=== PATIENT | female | born 1955 | race Caucasian/White ===

== ENCOUNTER → 2016-07-03 | Outpatient (CLI) | payer MEDICARE ==
[~2016-07-03] MED LIST: /ADVA50050; /ESCI20TA; /ESOM40CA; /TIOT18INH; ALBU17IN2; ALBU83IN; NICO14DI3; PRED10TA2; SYNT88TA; TRAZ50TA; TUMS500C; XANA0.25
--- NOTE | 2016-07-03 11:39 | REP ---
Clinical: Benign neoplasm. Preoperative assessment. Technique: PA and lateral. Comparison: 01/14/2016. Findings: Advanced COPD and emphysematous changes are appreciated including diffuse hyperinflation. Mediastinum and cardiac silhouette normal. No acute consolidation, effusion, or pneumothorax. A subtle density in the periphery of the left mid lung zone cannot be excluded and may warrant chest CT follow-up. Skeletal structures intact. Impression: 1. COPD and emphysematous changes. 2. Cannot exclude 12 mm density in the periphery of the left mid lung zone. Chest CT should be considered for further investigation. Signed by Nathaniel Gustafson MD 07/03/2016 11:30 A
[2016-07-03 12:29] LABS: COLLAGEN ADP 104 SECONDS (56-103)
[2016-07-03 12:41] LABS: ANION GAP 9 MEQ/L (8-16); BLOOD UREA NITROGEN 20 MG/DL (7-18); CALCIUM LEVEL 9.8 MG/DL (8.8-10.2); CARBON DIOXIDE LEVEL 30 MEQ/L (21-32); CHLORIDE LEVEL 103 MEQ/L (98-107); CREATININE FOR GFR 0.83 MG/DL (0.55-1.02); GLOMERULAR FILTRATION RATE > 60.0 (>45); GLUCOSE, FASTING 95 MG/DL (80-110); POTASSIUM SERUM 4.2 MEQ/L (3.5-5.1); SODIUM LEVEL 142 MEQ/L (136-145)
--- NOTE | 2016-07-04 07:53 | ECGEPIP ---
Stationary ECG Study [facility] Test Date: 2016-07-03 Pat Name: ANMOL ONEAL Department: Room: - Gender: F Apprentice Pattern Maker: : 1955 Requested By: Abhay Cm Order Number: [id number] Reading MD: Wilian Castillo Measurements Intervals [place] Rate: 56 P: 73 OH: 151 QRS: 6 QRSD: 101 T: 56 QT: 401 QTc: 389 Interpretive Statements SINUS BRADYCARDIA INCOMPLETE RIGHT BUNDLE BRANCH BLOCK No change from 11/07/14 Electronically Signed On 07-04-2016 7:53:12 EST by Wilian Castillo
== END | disposition home or self-care (01) ==
LOC: M LAB 10:47
PROVIDERS: ATTEND Ophthalmology
DX: D23.11 Other benign neoplasm of skin of right eyelid, including canthus (principal); J44.9 Chronic obstructive pulmonary disease, unspecified; R00.1 Bradycardia, unspecified; I45.10 Unspecified right bundle-branch block

== ENCOUNTER → 2016-07-27 | Day surgery (SDC) | payer MEDICARE ==
--- NOTE | 2016-07-26 00:34 | HPE ---
DATE OF ADMISSION: 07/27/2016 ROOM: Operating room. HISTORY AND CHIEF COMPLAINT: Mrs. Burdick is a 61-year-old lady who has had a 10-year history of a growth on the caruncle of the right eye. It has increased in size. Approximately 5 years ago there was some bleeding from the lesion. 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 PAST OCULAR HISTORY: See history of present illness, dry syndrome both eyes, age-related macular degeneration both eyes. Vitreous degeneration both eyes. PAST MEDICAL HISTORY/PREOPERATIVE MEDICAL EVALUATION AND ASSESSMENT: Please see the report by Dr. Stevie Zapata. Chronic obstructive pulmonary disease (COPD), depression, anxiety, asthma, hypothyroidism. Chest x-ray preoperatively shows a 12 mm density in the periphery of the left mid lung zone. Ge Osborne, nurse practitioner has ordered a CT scan of the chest to investigate this further. MEDICATIONS: Please refer to the report by Dr. Stevie Zapata and Ge Osborne. Maxalt, albuterol nebulizer, azelastine nasal spray, gabapentin, ibuprofen, cyclobenzaprine, omeprazole, dicyclomine, Advair Diskus, levothyroxine, vitamin D3, Chantix, Xanax, Lexapro, trazodone. ALLERGIES: No known drug allergies. FAMILY HISTORY: Noncontributory with respect to eye disease. SOCIAL HISTORY: Current smoker. EXAMINATION: The vision with current correction: Right eye 20/20. Left eye: 20/25. Intraocular pressure by Goldmann tonometry: Right eye: 9 mmHg. Left eye: 10 mmHg. Pupils: Both eyes: Round, regular and reactive to light. Extraocular movements: Both eyes: Full. External examination: Right eye: Papilloma seen on the caruncle of the right eye measuring 5 mm in length x 3.2 mm in width. Associated cyst, associated 1/2 + swelling 1/2+ redness and semi-pigmented. No lymphadenopathy present. Decreased tear duran. Left eye: Decreased tear duran. Both eyes: Dermatochalasis of upper and lower eyelids. Slit lamp examination: Corneas: Both eyes: 1+ superficial punctate keratitis. Anterior chamber: Both eyes: Normal. Lens: Both eyes: Clear. Fundal exam: Disc: Both eyes Normal Macula: Right eye: Retinal pigment epithelial atrophy. Left eye: Normal. Vitreous: Both eyes: Floaters. IMPRESSION: 1. 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 2. Dry syndrome both eyes. 3. Age-related macular degeneration, right eye, mild. PLAN: I discussed the findings with Le and explained to her the growth on the caruncle of the right eye has increased in size by history. It is semi-pigmented. I recommended an excisional biopsy of the lesion in the operating room under local anesthetic with sedation. I discussed with her the procedure, benefits, expected outcomes, risks and alternatives to surgery. I mentioned that the risk of surgery includes, but is not limited to surgery is not guaranteed, the purpose of the excisional biopsy is to determine what is the lesion, bleeding, infection, inflammation, scarring , injury to the globe, lacrimal system or the eyelids impairing function. Mrs. Burdick elected to have the said surgery performed. I obtained an informed consent. I advised her to stop any aspirin-type products and nonsteroidal anti-inflammatories [address] Stevie Zapata and Ge Osborne NP will determine the preoperative and postopereative medications. RJ
[~2016-07-27] VITALS: Ht 154.9 cm; Wt 42.2 kg
[~2016-07-27] MED LIST changes: +ACETAMINOPHEN TAB 650MG DOSE (2X325MG) PO PRN; +BUPIVACAINE 0.75% 10 ML VIAL As Ordered ONE; +CIPROFLOXACIN OPHTH 0.3% OINTMENT As Ordered ONE; +HYALURONIDASE 200 UNITS/ML VIAL (J3470) As Ordered ONE; +LIDOCAINE 2% INJ 100 MG/5 ML SDV (FOR ANES.) As Ordered ONE; +LIDOCAINE 2% W/EPIN INJ 20ML **PRES FREE As Ordered ONE; +LIDOCAINE W/EPINEPHRINE 1% 20ML VIAL As Ordered ONE; +LR 1,000 ML IV SCH; +MIDAZOLAM INJ 2 MG/2 ML VIAL (J2250) As Ordered ONE; +ONDANSETRON 4MG/2ML VIAL (J2405) IV PRN; +POVIDONE-IODINE 5% OPHTH PREP SOL 30ML As Ordered ONE; +PROPOFOL 200 MG/20 ML VIAL As Ordered ONE; +SODIUM BICARBONATE 8.4% INJ 50MEQ 50 ML VIAL As Ordered ONE; +TETRACAINE 0.5% OPHTH SOLN 4ML As Ordered ONE; +TOBRADEX OPHTH OINT 3.5 GM As Ordered ONE; +ceFAZolin SOD 1 GM in D5W MINI-BAG PLUS 50 ML IV ONE; +dexameTHASONE 4 MG/ML 1ML VIAL (J1100) IV ONE; +fentaNYL 100 MCG/2 ML INJECTION (J3010) As Ordered ONE
--- NOTE | 2016-07-27 09:01 | RO ---
DATE OF PROCEDURE: 07/27/2016 PREOPERATIVE DIAGNOSIS: 1. Papilloma on caruncle of right eye, 5 x 3.2 mm in size. POSTOPERATIVE DIAGNOSIS: 1. Papilloma on caruncle of right eye, 5 x 3.2 mm in size, pigmented. OPERATIVE PROCEDURE: Excisional biopsy of papilloma on caruncle of right eye. SURGEON: Abhay Cm MD SENIOR PUBLICATIONS SPECIALIST: ANESTHESIA: Local and monitored sedation. OPERATIVE PROCEDURE DETAILS: The patient was brought into the operating room and positioned appropriately. After adequate sedation, topical anesthetic consisting of tetracaine 0.5% drops was instilled into the right eye and after a period of 3 minutes Xylocaine 2% with epinephrine 1:200,000, 0.25 5 mL was injected into the lesion in the right caruncle. The full face was prepped with Betadine and draped in the usual sterile manner. A wire lid speculum was inserted into the right eye. The lesion was examined and noted to be pigmented. The blunt Davion's scissors and the fine-tooth Janelle scissors were used to excise the lesion completely from a clinical perspective. Bipolar cautery was applied to any fine bleeders. There were no complications during the surgery. A combination of TobraDex ophthalmic ointment mixed with Ciloxan ophthalmic ointment was instilled into the right eye. The specimens were sent to pathology. The patient left for the recovery room in good condition. [facility] SHORE[facility]line
[2016-07-27 09:05] VITALS: BP 118/72
== END | disposition home or self-care (01) ==
LOC: M SDC 06:04
PROVIDERS: ATTEND Ophthalmology
DX: D23.11 Other benign neoplasm of skin of right eyelid, including canthus (principal); H04.123 Dry eye syndrome of bilateral lacrimal glands; H35.30 Unspecified macular degeneration; H43.813 Vitreous degeneration, bilateral; R91.1 Solitary pulmonary nodule; J44.9 Chronic obstructive pulmonary disease, unspecified; J45.909 Unspecified asthma, uncomplicated; E03.9 Hypothyroidism, unspecified; F32.9 Major depressive disorder, single episode, unspecified; F41.9 Anxiety disorder, unspecified; F34.1 Dysthymic disorder; E55.9 Vitamin D deficiency, unspecified; J84.10 Pulmonary fibrosis, unspecified; E78.4 Other hyperlipidemia; M81.0 Age-related osteoporosis without current pathological fracture; F17.210 Nicotine dependence, cigarettes, uncomplicated; Z79.899 Other long term (current) drug therapy; Z79.1 Long term (current) use of non-steroidal anti-inflammatories (NSAID); Z79.51 Long term (current) use of inhaled steroids
CPT/HCPCS: 11440; 88305; J0690; J1100; J2250; J3010; J3470

== ENCOUNTER → 2016-07-29 | Outpatient (CLI) | payer MEDICARE ==
[~2016-07-29] MED LIST changes: -ACETAMINOPHEN TAB 650MG DOSE (2X325MG) PO PRN; -BUPIVACAINE 0.75% 10 ML VIAL As Ordered ONE; -CIPROFLOXACIN OPHTH 0.3% OINTMENT As Ordered ONE; -HYALURONIDASE 200 UNITS/ML VIAL (J3470) As Ordered ONE; -LIDOCAINE 2% INJ 100 MG/5 ML SDV (FOR ANES.) As Ordered ONE; -LIDOCAINE 2% W/EPIN INJ 20ML **PRES FREE As Ordered ONE; -LIDOCAINE W/EPINEPHRINE 1% 20ML VIAL As Ordered ONE; -LR 1,000 ML IV SCH; -MIDAZOLAM INJ 2 MG/2 ML VIAL (J2250) As Ordered ONE; -ONDANSETRON 4MG/2ML VIAL (J2405) IV PRN; -POVIDONE-IODINE 5% OPHTH PREP SOL 30ML As Ordered ONE; -PROPOFOL 200 MG/20 ML VIAL As Ordered ONE; -SODIUM BICARBONATE 8.4% INJ 50MEQ 50 ML VIAL As Ordered ONE; -TETRACAINE 0.5% OPHTH SOLN 4ML As Ordered ONE; -TOBRADEX OPHTH OINT 3.5 GM As Ordered ONE; -ceFAZolin SOD 1 GM in D5W MINI-BAG PLUS 50 ML IV ONE; -dexameTHASONE 4 MG/ML 1ML VIAL (J1100) IV ONE; -fentaNYL 100 MCG/2 ML INJECTION (J3010) As Ordered ONE
--- NOTE | 2016-07-30 09:05 | REP ---
PET/CT: History: Solitary pulmonary nodule. Comparisons: Chest CT study from July 22, 2016 and chest x-ray from July 03, 2016 showed a 1.5 cm spiculated nodule in the left lower lobe of the lung. TECHNIQUE: 84 minutes following the intravenous injection of a 8.3 mCi dose of F-18 FDG, three-dimensional PET scintigraphy is acquired from the skull base to the proximal thighs. Triplanar noncontrast CT scanning is acquired through the same anatomic range for attenuation correction, and image registration with scan parameters optimized to minimize radiation exposure to the patient. PET scintigraphy and CT datasets were fused and displayed on a workstation with multiplanar and projection display capability. PET/CT Findings: The left lower lobe lung nodule is hypermetabolic. Maximum standard uptake value in this nodule is 6.4. There is no hypermetabolic uptake in the left hilus for a and mediastinal now nodes. No adrenal hypermetabolic uptake is seen. There is a small linear area of hypermetabolic uptake in the distal esophagus just above the GE junction. Maximum standard uptake value here is a five 0.4. There are some linear normal physiologic uptake in the remainder of the esophagus. There is mild physiologic bowel uptake in the abdomen but less avid than in the distal esophagus. I cannot exclude a distal esophageal neoplastic lesion. Consider esophagram or upper endoscopy. In the abdomen and pelvis there is no abnormal hypermetabolic uptake. The head and neck soft tissues are unremarkable. No other abnormality. Impression: 1. The known left lower lobe mass is hypermetabolic. No hilar or mediastinal cari hypermetabolic uptake. No adrenal uptake seen. 2. there is a short-segment somewhat linear area of hypermetabolic uptake in the distal esophagus. This shows more avid uptake than normal physiologic background gastrointestinal uptake. Question distal esophageal lesion. Consider esophagram or endoscopy. Signed by Darron Valdivia MD 07/30/2016 08:57 A
== END ==
LOC: M RAD 11:45
PROVIDERS: ATTEND Internal Medicine Pulmonary Disease
DX: R91.1 Solitary pulmonary nodule (principal); R91.8 Other nonspecific abnormal finding of lung field
CPT/HCPCS: 78815; A9552

== ENCOUNTER → 2016-08-17 | Day surgery (SDC) | payer MEDICARE ==
[~2016-08-17] VITALS: Ht 154.9 cm; Wt 42.6 kg
[~2016-08-17] MED LIST changes: +ADV250INH INH; +ALBU17IN INH; +EPINEPHrine 1MG/10ML SYRINGE 1.5IN As Ordered ONE; +GLYCOPYRROLATE INJ 0.2 MG/ML 2 ML VIAL As Ordered ONE; +LEVO88TA3 PO; +LEXA1TAB2 PO; +LIDOCAINE 1% SDV INJ 30 ML VIAL As Ordered ONE; +LIDOCAINE 2% INJ 100 MG/5 ML SDV (FOR ANES.) As Ordered ONE; +LIDOCAINE VISCOUS 2% SOLN 15ML UDC As Ordered ONE; +LR 1,000 ML IV SCH; +MIDAZOLAM INJ 2 MG/2 ML VIAL (J2250) As Ordered ONE; +NEOSTIGMINE 1MG/ML 5 ML SYRINGE (J2710) As Ordered ONE; +ONDANSETRON 4MG/2ML VIAL (J2405) As Ordered ONE; +ONDANSETRON 4MG/2ML VIAL (J2405) IV PRN; +PHENYLephrine HCL 500 MCG/5 ML (100MCG/ML) SYRINGE (J2370) As Ordered ONE; +PROPOFOL 200 MG/20 ML VIAL As Ordered ONE; +ROCURONIUM BROMIDE 50 MG/5 ML VIAL As Ordered ONE; +THROMBIN SOLN 5,000 UNITS VIAL As Ordered ONE; +TRAZ100T4 PO; +VITA500046 PO; +XANA0.25 PO; +fentaNYL 100 MCG/2 ML INJECTION (J3010) As Ordered ONE; +fentaNYL 100 MCG/2 ML INJECTION (J3010) IV PRN
--- NOTE | 2016-08-17 08:46 | RO ---
DATE OF PROCEDURE: 08/17/2016 PREPROCEDURE DIAGNOSIS: Left lower lobe solitary pulmonary nodule. POSTPROCEDURE DIAGNOSIS: Left lower lobe solitary pulmonary nodule. PROCEDURE: ENB with transbronchial biopsies, cutting needle, brushing, and bronchoalveolar lavage (BAL). A fiducial marker was placed. SURGEON: Moi Pinon MD RESIDENTIAL TREATMENT STAFF: ANESTHESIA: General. DESCRIPTION OF PROCEDURE: The procedure was explained and consent was obtained. Ms. Burdick was intubated and sedation and pain management was handled by anesthesia. [place] procedure was followed. Following this, the bronchoscope was introduced through the endotracheal tube into the trachea. Both lungs were examined. There was a small amount of secretions, which were evacuated. There was pitting and some evidence of bronchiectasis. Automatic registration was then done. Following this, the Smartjog software was used to locate the lesion. Position was confirmed by fluoroscopy. Following this, needle biopsy was done, but it appeared that the needle may have been deflected from the lesion. Therefore, we changed to a brushing followed by five transbronchial biopsies, followed by a cutting needle. A fiducial marker was then placed. BAL was then done. She tolerated the procedure well. Postoperative x-ray pending. FINDINGS: 1. Minimal secretions. 2. Pitting and evidence of bronchiectasis in the airway. SPECIMENS: 1. Left lower lobe lesion transbronchial biopsies sent to pathology. 2. Left lower lobe lesion cutting needle sent to cytology. 3. Left lower lobe lesion brushing sent to cytology. 4. Left lower lobe lesion BAL sent to cytology. [facility]
--- NOTE | 2016-08-17 09:30 | REP ---
PORTABLE CHEST: AP portable view of the chest is performed and compared to a prior study of 07/03/2016. Ill-defined parenchymal opacity in the left lung inferiorly is noted with a metallic clip at that location. There is no pneumothorax. There is biapical pleural thickening. There is diffuse interstitial fibrosis. Cardiomediastinal silhouette is unchanged. IMPRESSION: No pneumothorax. Ill-defined focal opacity left lung base with metallic clip at that location. Signed by Melo Sandoval MD 08/17/2016 03:53 P
[2016-08-17 10:10] VITALS: BP 106/67
== END | disposition home or self-care (01) ==
LOC: M SDC 05:48 → EDSTATUS 07:30
PROVIDERS: ATTEND Internal Medicine Pulmonary Disease
DX: C34.32 Malignant neoplasm of lower lobe, left bronchus or lung (principal); J44.9 Chronic obstructive pulmonary disease, unspecified; J45.909 Unspecified asthma, uncomplicated; E55.9 Vitamin D deficiency, unspecified; G43.909 Migraine, unspecified, not intractable, without status migrainosus; M81.0 Age-related osteoporosis without current pathological fracture; F41.9 Anxiety disorder, unspecified; F32.9 Major depressive disorder, single episode, unspecified; R06.00 Dyspnea, unspecified; R05 Cough; E03.9 Hypothyroidism, unspecified; F17.218 Nicotine dependence, cigarettes, with other nicotine-induced disorders; Z79.899 Other long term (current) drug therapy; Z79.51 Long term (current) use of inhaled steroids; Z80.1 Family history of malignant neoplasm of trachea, bronchus and lung; Z88.8 Allergy status to other drugs, medicaments and biological substances; Z88.5 Allergy status to narcotic agent
CPT/HCPCS: 31623; 31624; 31626; 31627; 31629; 71010; 76000; 88104; 88108; 88172; 88173; 88305; 88313; 88341; 88342; J2250; J2370; J2405; J2710; J3010

== ENCOUNTER → 2016-08-26 | Outpatient (CLI) | payer MEDICARE ==
[~2016-08-26] MED LIST changes: -EPINEPHrine 1MG/10ML SYRINGE 1.5IN As Ordered ONE; -GLYCOPYRROLATE INJ 0.2 MG/ML 2 ML VIAL As Ordered ONE; -LIDOCAINE 1% SDV INJ 30 ML VIAL As Ordered ONE; -LIDOCAINE 2% INJ 100 MG/5 ML SDV (FOR ANES.) As Ordered ONE; -LIDOCAINE VISCOUS 2% SOLN 15ML UDC As Ordered ONE; -LR 1,000 ML IV SCH; -MIDAZOLAM INJ 2 MG/2 ML VIAL (J2250) As Ordered ONE; -NEOSTIGMINE 1MG/ML 5 ML SYRINGE (J2710) As Ordered ONE; +NS 1,000 ML IV SCH; -ONDANSETRON 4MG/2ML VIAL (J2405) As Ordered ONE; -ONDANSETRON 4MG/2ML VIAL (J2405) IV PRN; -PHENYLephrine HCL 500 MCG/5 ML (100MCG/ML) SYRINGE (J2370) As Ordered ONE; -PROPOFOL 200 MG/20 ML VIAL As Ordered ONE; -ROCURONIUM BROMIDE 50 MG/5 ML VIAL As Ordered ONE; -THROMBIN SOLN 5,000 UNITS VIAL As Ordered ONE; -fentaNYL 100 MCG/2 ML INJECTION (J3010) As Ordered ONE; -fentaNYL 100 MCG/2 ML INJECTION (J3010) IV PRN
--- NOTE | 2016-08-26 14:31 | ROOR ---
Patient Name: Le Burdick Procedure Date: 08/26/2016 2:16 PM Date of : 1955 Age: 61 Room: [facility] Gender: Female Note Status: Finalized Procedure: Upper GI endoscopy + Biopsies Indications: Abnormal PET scan of the GI tract Providers: Calderon Armas MD Referring MD: Ge Osborne NP, Rhianna Pinon MD Requesting Provider: Medicines: Monitored Anesthesia Care Complications: No immediate complications. Procedure: Pre-Anesthesia Assessment: - The heart rate, respiratory rate, oxygen saturations, blood pressure, adequacy of pulmonary ventilation, and response to care were monitored throughout the procedure. The Endoscope was introduced through the mouth, and advanced to the second part of duodenum. The upper GI endoscopy was accomplished without difficulty. The patient tolerated the procedure well. Findings: The Z-line was irregular and was found 40 cm from the incisors. Multiple biopsies were obtained with cold forceps for evaluation to rule out Cisneros's Esophagus randomly at the gastroesophageal junction. A small hiatal hernia was present. No other significant abnormalities were identified in a careful examination of the stomach. The exam of the duodenum was otherwise normal. Impression: - Z-line irregular, 40 cm from the incisors. - Small hiatal hernia. - Multiple biopsies were obtained at the gastroesophageal junction. - The examination was otherwise normal. Recommendation: - Patient has a contact number available for emergencies. The signs and symptoms of potential delayed complications were discussed with the patient. Return to normal activities tomorrow. Written discharge instructions were provided to the patient. - High fiber diet. - Discharge patient to home. - Follow an antireflux regimen. - Continue present medications. - Await pathology results. - Telephone GI clinic for pathology results in 1 week. - Return to referring physician. - The findings and recommendations were discussed with the patient's family. Calderon Armas MD Calderon Armas MD 08/26/2016 2:30:56 PM This report has been signed electronically. Number of Addenda: 0 Note Initiated On: 08/26/2016 2:16 PM Estimated Blood Loss: Estimated blood loss: none.
[2016-08-26 14:56] VITALS: BP 133/77
== END ==
LOC: M OPP 13:03
PROVIDERS: ATTEND Internal Medicine Gastroenterology
DX: R93.3 Abnormal findings on diagnostic imaging of other parts of digestive tract (principal); K22.8 Other specified diseases of esophagus; K44.9 Diaphragmatic hernia without obstruction or gangrene; Z85.118 Personal history of other malignant neoplasm of bronchus and lung; Z86.010 Personal history of colon polyps; E07.9 Disorder of thyroid, unspecified; J45.909 Unspecified asthma, uncomplicated; J44.9 Chronic obstructive pulmonary disease, unspecified; F17.200 Nicotine dependence, unspecified, uncomplicated; Z79.899 Other long term (current) drug therapy; Z88.5 Allergy status to narcotic agent

== ENCOUNTER → 2016-09-11 | Outpatient (CLI) | payer MEDICARE ==
[~2016-09-11] MED LIST changes: -NS 1,000 ML IV SCH
--- NOTE | 2016-09-11 12:52 | REP ---
CHEST, TWO VIEWS: HISTORY: Lung carcinoma. COMPARISON: 08/17/2016 The lungs are hyperinflated. An increase in interstitial markings is present in the lungs. An ill-defined parenchymal density is present in the left lower lobe. A metal clip is present overlying the parenchymal density. The heart is normal in size. The pulmonary vasculature is normal in appearance. The bony structure is intact. IMPRESSION: 1. COPD. 2. There is an ill-defined parenchymal density in the left lower lobe, unchanged compared to the previous study. Signed by Vaughn Green MD 09/11/2016 01:09 P
--- NOTE | 2016-09-11 15:15 | REP ---
DIFFERENTIAL LUNG VENTILATION AND PERFUSION SCAN: Following the intravenous administration of 1.0 mCi of technetium 99m tagged MAA and the inhalation of 2.0 mCi of technetium 99m DTPA aerosol, images of the lungs are obtained in the anterior and posterior projections. Small bilateral matching ventilation and perfusion defects are seen. Differential counts are obtained in the upper, middle and lower thirds of each lung. Mean perfusion of the left lung is 57.6% and of the right lung is 42.4%. Mean ventilation of the left lung is 52.3% and right lung 47.7%. Signed by Melo Sandoval MD 09/11/2016 04:44 P
== END ==
LOC: M RAD 12:08
PROVIDERS: ATTEND Thoracic Surgery (Cardiothoracic Vascular Surgery)
DX: C34.32 Malignant neoplasm of lower lobe, left bronchus or lung (principal); J44.9 Chronic obstructive pulmonary disease, unspecified
CPT/HCPCS: 71020; 78598; A9540; A9567

== ENCOUNTER → 2016-09-14 | Outpatient (CLI) | payer MEDICARE ==
--- NOTE | 2016-09-16 20:26 | CPSTRESS ---
DATE OF PROCEDURE: 09/14/2016 INTERPRETATION: This was a symptom-limited exercise test with a VO2 max of 23.7 mL/kg (83% predicted). There was no cardiovascular or ventilatory limitation to exercise (VE is 70% of predicted max and heart rate is 72% of predicted max) consistent with a submaximal effort. The O2 pulse is 7 mL/beat (78% predicted). There is no flow limitation on exercise tidal loops. Ventilatory equivalents are mildly elevated with no oxygen desaturation during or after exercise. Anaerobic threshold is 19.7 mL/kg. Normal lung auscultation following exercise. No EKG abnormalities. IMPRESSION: A VO2 max of 83% predicted with a submaximal effort suggests a normal VO2 max. Elevated ventilatory equivalent suggests a gas exchange abnormality or acute hyperventilation. Need clinical correlation. MTDD
== END ==
LOC: M CARPUL 10:19
PROVIDERS: ATTEND Thoracic Surgery (Cardiothoracic Vascular Surgery)
DX: C34.32 Malignant neoplasm of lower lobe, left bronchus or lung (principal)

== ENCOUNTER → 2016-10-09 | Outpatient (CLI) | payer MEDICARE ==
[~2016-10-09] MED LIST changes: +SPIR12.9 INH
[2016-10-09 11:28] LABS: ABG BASE EXCESS 1.2 (-2.0-2.0); ABG DEVICE ROOM AIR; ABG HCO3 23.1 MEQ/L (22.0-26.0); ABG PARTIAL PRESSURE CO2 29.9 mmHg (35.0-45.0); ABG STANDARD HCO3 25.5 MEQ/L (22.0-26.0); ABG pH (ARTERIAL) 7.505 UNITS (7.350-7.450)
[2016-10-09 11:56] LABS: MEAN CORPUSCULAR HEMOGLOBIN 34.9 pg (27.0-33.0); MEAN CORPUSCULAR HGB CONC 33.8 g/dl (32.0-36.5); MEAN CORPUSCULAR VOLUME 103.2 fl (80.0-96.0); RED CELL DISTRIBUTION WIDTH 12.1 % (11.5-14.5); WHITE BLOOD COUNT 8.9 K/mm3 (4.0-10.0)
[2016-10-09 11:58] LABS: INR 0.91
[2016-10-09 12:14] LABS: ANION GAP 9 MEQ/L (8-16); BLOOD UREA NITROGEN 12 MG/DL (7-18); CALCIUM LEVEL 9.5 MG/DL (8.8-10.2); CARBON DIOXIDE LEVEL 29 MEQ/L (21-32); CHLORIDE LEVEL 102 MEQ/L (98-107); CREATININE FOR GFR 0.83 MG/DL (0.55-1.02); GLOMERULAR FILTRATION RATE > 60.0 (>45); GLUCOSE, FASTING 96 MG/DL (80-110); POTASSIUM SERUM 4.1 MEQ/L (3.5-5.1); SODIUM LEVEL 140 MEQ/L (136-145)
--- NOTE | 2016-10-09 12:24 | REP ---
Clinical: Lung cancer. Technique: PA and lateral. Comparison: 09/11/2016. Findings: Just peripheral to the surgical clip in the left lower lung zone is an ovoid soft tissue density measuring approximately 17 mm. Mediastinum and cardiac silhouette are normal. Remainder of lung cabello are well-aerated, clear and stable. No effusion. No pneumothorax. Chronic biapical scarring noted. Skeletal structures intact. Impression: Ovoid density peripheral to the surgical clip in the left lower lobe. Signed by Nathaniel Gustafson MD 10/09/2016 12:16 P
--- NOTE | 2016-10-09 19:57 | ECGEPIP ---
Stationary ECG Study [facility] Test Date: 2016-10-09 Pat Name: ANMOL ONEAL Department: Room: - Gender: F Fashion Buyer: KENRICK : 1955 Requested By: García Collazo Order Number: [id number] Reading MD: Abhay Clement Measurements Intervals [place] Rate: 71 P: 75 OH: 142 QRS: -10 QRSD: 105 T: 55 QT: 387 QTc: 422 Interpretive Statements SINUS RHYTHM INCOMPLETE RIGHT BUNDLE BRANCH BLOCK Electronically Signed On 10-09-2016 19:57:22 EDT by Abhay Clement
== END ==
LOC: M ADMPAT 10:02
PROVIDERS: ATTEND Thoracic Surgery (Cardiothoracic Vascular Surgery)
DX: Z01.818 Encounter for other preprocedural examination (principal); C34.90 Malignant neoplasm of unspecified part of unspecified bronchus or lung; I45.10 Unspecified right bundle-branch block; Z79.899 Other long term (current) drug therapy

== ENCOUNTER 2016-10-21 05:53 | Inpatient (IN) | payer MEDICARE ==
[2016-10-09 10:26] VITALS: BP 115/77
[~2016-10-21] VITALS: Ht 154.9 cm; Wt 45.7 kg
[2016-10-21] MEDS ORDERED: LR 1,000 ML IV SCH ×2 (06:00→12:30)
[2016-10-21] MEDS ORDERED: ceFAZolin 1GM INJ (J0690) As Ordered ONE (06:48)
[2016-10-21] MEDS ORDERED: ceFAZolin SOD 1 GM in D5W MINI-BAG PLUS 50 ML IV ONE (07:00)
[2016-10-21] MEDS ORDERED: MUPIROCIN 2% OINT 22 GM TUBE TOP ONE (07:15)
[2016-10-21] MEDS ORDERED: fentaNYL 100 MCG/2 ML INJECTION (J3010) As Ordered ONE (07:19)
[2016-10-21] MEDS ORDERED: MIDAZOLAM INJ 2 MG/2 ML VIAL (J2250) As Ordered ONE ×2 (07:19→09:29)
[2016-10-21] MEDS: fentaNYL 100 MCG/2 ML INJECTION (J3010) IV SCH ×2 (07:28→08:05)
[2016-10-21] MEDS: MIDAZOLAM INJ 2 MG/2 ML VIAL (J2250) IV SCH ×2 (07:28→07:31)
[2016-10-21] MEDS ORDERED: BUPIVACAINE HCL 0.5% 10 ML VIAL As Ordered ONE (07:33)
[2016-10-21] MEDS ORDERED: BUPIVACAINE LIPOSOME/PF 1.3% 20 ML VIAL (13.3MG/ML)(EXPAREL) As Ordered ONE ×2 (07:34→10:50)
[2016-10-21] MEDS ORDERED: fentaNYL 100 MCG/2 ML INJECTION (J3010) IV SCH (08:30)
[2016-10-21] MEDS ORDERED: MIDAZOLAM INJ 2 MG/2 ML VIAL (J2250) IV SCH (08:30)
[2016-10-21] MEDS ORDERED: fentaNYL 250 MCG/5 ML INJECTION (J3010) As Ordered ONE (09:29)
[2016-10-21] MEDS ORDERED: dexameTHASONE 4 MG/ML 1ML VIAL (J1100) As Ordered ONE (09:29)
[2016-10-21] MEDS ORDERED: PHENYLephrine HCL 500 MCG/5 ML (100MCG/ML) SYRINGE (J2370) As Ordered ONE (09:29)
[2016-10-21] MEDS ORDERED: ePHEDrine SULFATE 25 MG/5 ML(5MG/ML) SYRINGE As Ordered ONE (09:29)
[2016-10-21] MEDS ORDERED: LIDOCAINE 2% INJ 100 MG/5 ML SDV (FOR ANES.) As Ordered ONE (09:29)
[2016-10-21] MEDS ORDERED: ONDANSETRON 4MG/2ML VIAL (J2405) As Ordered ONE (09:29)
[2016-10-21] MEDS ORDERED: ROCURONIUM BROMIDE 50 MG/5 ML VIAL As Ordered ONE (09:29)
[2016-10-21] MEDS ORDERED: GLYCOPYRROLATE INJ 0.2 MG/ML 2 ML VIAL As Ordered ONE (09:46)
[2016-10-21] MEDS ORDERED: NEOSTIGMINE 1MG/ML 5 ML SYRINGE (J2710) As Ordered ONE (09:47)
[2016-10-21] MEDS ORDERED: KETOROLAC 60 MG/2 ML VIAL (J1885) As Ordered ONE (10:51)
[2016-10-21] MEDS: KCL 20MEQ IN D5/NS 1000ML 1,000 ML IV SCH (11:04)
[2016-10-21] MEDS ORDERED: ONDANSETRON 4MG/2ML VIAL (J2405) IV PRN ×3 (11:15→12:30)
[2016-10-21] MEDS ORDERED: BISACODYL 10 MG SUPP PR PRN (11:15)
[2016-10-21] MEDS ORDERED: NORCO, ANEXSIA 5/325MG TABLET (HYDROcodone/ACETAMINOPHEN) PO PRN (11:15)
[2016-10-21] MEDS ORDERED: ACETAMINOPHEN TAB 650MG DOSE (2X325MG) PO PRN (11:15)
[2016-10-21] MEDS ORDERED: FENTANYL 2MCG/ML BUPIVACAINE 0.0625% NACL 250ML IV BAG As Ordered ONE (11:15)
[2016-10-21] MEDS ORDERED: PERCOCET 5MG/325MG TAB PO PRN ×2 (11:15)
[2016-10-21] MEDS ORDERED: LEVALBUTEROL 1.25 MG/0.5 ML CONCENTRATE NEB NEB PRN (11:15)
[2016-10-21 11:29] LABS: ABG BASE EXCESS -4.4 (-2.0-2.0); ABG HCO3 22.2 MEQ/L (22.0-26.0); ABG PARTIAL PRESSURE CO2 46.4 mmHg (35.0-45.0); ABG PARTIAL PRESSURE O2 89.5 mmHg (75.0-100.0); ABG STANDARD HCO3 20.8 MEQ/L (22.0-26.0); ABG TOTAL CO2 23.6 MEQ/L (23.0-31.0); ABG pH (ARTERIAL) 7.297 UNITS (7.350-7.450)
[2016-10-21 11:32] LABS: BASO % 0.2 % (0.0-1.0); EOS # 0.3 K/mm3 (0.0-0.50); EOS % 1.9 % (0.0-3.0); LARGE UNSTAINED CELL % 0.3 % (0.0-4.0); LYMPH # 0.6 K/mm3 (1.5-4.5); LYMPH % 3.6 % (24.0-44.0); MEAN CORPUSCULAR HEMOGLOBIN 34.9 pg (27.0-33.0); MEAN CORPUSCULAR HGB CONC 34.2 g/dl (32.0-36.5); MONO # 0.5 K/mm3 (0.0-0.8); MONO % 3.2 % (0.0-5.0); NEUTROPHILS % 90.9 % (36.0-66.0); PLATELET COUNT, AUTOMATED 211 k/mm3 (150-450); RED CELL DISTRIBUTION WIDTH 12.3 % (11.5-14.5); WHITE BLOOD COUNT 14.3 K/mm3 (4.0-10.0)
[2016-10-21] MEDS: fentaNYL 100 MCG/2 ML INJECTION (J3010) IV PRN ×4 (11:45→13:07)
--- NOTE | 2016-10-21 11:56 | REP ---
Portable chest, single AP view, the patient sitting, post refer lower lobectomy: Comparison is 10/09/2016. There are two left thoracotomy tubes as an interval change. A small amount of subcutaneous emphysema is noted along the left lateral chest wall superiorly. There is no pneumothorax. The lung cabello otherwise clear. There is volume loss on the left is a consequence of the left lower lobectomy. Cardiac size is normal. The jamil and mediastinum are unremarkable. There is an epidural catheter. Impression: No pneumothorax, infiltrate or atelectasis. Tiny volume of subcutaneous emphysema. Two left thoracotomy tubes. Epidural catheter. Signed by Melo Maldonado MD 10/21/2016 11:47 A
[2016-10-21] MEDS ORDERED: NALOXONE INJ 0.4 MG/1 ML VIAL (J2310) IV PRN (12:00)
[2016-10-21] MEDS ORDERED: METOCLOPRAMIDE INJ 10MG/2ML VIAL (J2765) IV PRN ×2 (12:00→12:30)
[2016-10-21] MEDS ORDERED: WALLBOXKEY XX PRN (12:00)
[2016-10-21] MEDS ORDERED: EPIDURAL/PCA KEYS XX PRN (12:00)
[2016-10-21] MEDS ORDERED: diphenhydrAMINE INJ 50MG/ML VIAL (J1200) IV PRN (12:00)
[2016-10-21 12:07] LABS: ANION GAP 3 MEQ/L (8-16); BLOOD UREA NITROGEN 16 MG/DL (7-18); CALCIUM LEVEL 8.3 MG/DL (8.8-10.2); CARBON DIOXIDE LEVEL 28 MEQ/L (21-32); CHLORIDE LEVEL 109 MEQ/L (98-107); CREATININE FOR GFR 0.62 MG/DL (0.55-1.02); GLOMERULAR FILTRATION RATE > 60.0 (>45); GLUCOSE, FASTING 155 MG/DL (80-110); POTASSIUM SERUM 4.3 MEQ/L (3.5-5.1); SODIUM LEVEL 140 MEQ/L (136-145)
--- NOTE | 2016-10-21 13:14 | RO ---
DATE OF PROCEDURE: 10/21/2016 PREPROCEDURE DIAGNOSIS: Left lower lobe lung cancer. POSTPROCEDURE DIAGNOSIS: Left lower lobe lung cancer. PROCEDURE: Left lower lobectomy, mediastinal lymphadenectomy, five-level rib block, and a bronchoscopy. SURGEON: García Saucedo MD YEAST CULTURE OPERATOR: Dani Decker MD ANESTHESIA: FINDINGS: The bronchoscopy revealed a normal branching tracheobronchial tree. There were moderate secretions, which were cleared by suction aspiration. There were no other endobronchial lesions seen. The thoracotomy revealed a left lung with a complete fissure. There were some adhesions in the upper lobe and to the aorta. A tumor was felt at the fissure in the lower lobe. There was no pleural studding. There were scant mediastinal nodes. The nodes that were present were removed. Dr. Decker assisted to provide exposure and retraction of the great vessels so that I could conduct the operation safely. DESCRIPTION OF PROCEDURE: Under satisfactory general anesthesia and single-lumen endotracheal intubation, the bronchoscope was passed in the tracheobronchial tree. The above results were noted. Each segment and subsegmental bronchus was thoroughly inspected after suction aspiration, and there were no endobronchial lesions. The patient was then turned into the right lateral decubitus position and prepped and draped in the usual sterile fashion. A posterolateral incision was made, and the latissimus dorsi was divided. A slip of the anterior serratus was also divided. The chest was then entered through the intercostal space. The above findings were noted, and the fissure was completed. The lower lobe pulmonary artery was found in the fissure. The posterior fissure was completed by use of a [place] BENJAMIN stapler. The patient was then turned to the anterior hilum, where the pulmonary veins were dissected free, and the inferior pulmonary ligament was divided so as to expose the inferior pulmonary vein. The inferior pulmonary vein was surrounded with a vessel loop and then stapled with a vascular BENJAMIN stapler. Likewise, the lower lobe artery was surrounded with a vessel loop and again stapled with a B[place] vascular stapler. This then left the fissure. There were numerous adhesions, fairly dense, of the posterior pleura. These were dissected free, and the fissure was eventually completed with an [place] stapler. This then left the left lower bronchus. All the nodes were swept to the specimen side, and the lower lobe bronchus was stapled with a TX30 green stapler. Prior to stapling the bronchus, the upper lobe was reinflated. The bronchus was amputated and was then checked for air leaks up to 40 cm of water pressure and was found to be intact. There were a few parenchymal air leaks at the staple lines where the fissures were completed. Two chest tubes were placed, one anterior and one posterior, #20 and #24, respectively. A five-level rib block consisting of Exparel and 0.5% Marcaine were injected. The AP window was then opened and all the nodes swept out. There were some very high proximal nodes, and these were taken down and removed. Care was taken to preserve the phrenic nerve and the recurrent laryngeal nerve. Adequate hemostasis was achieved, and Tisseel glue was placed. After achieving complete adequate hemostasis, the ribs were reapproximated by use of #2 Prolene figure-of-8 sutures. The extrathoracic muscles were reapproximated with use of #0 Vicryl suture, the subcutaneous tissue by use of #-0 Vicryl suture, and the skin by use of #3-0 Monocryl subcuticular suture. The patient tolerated the procedure well and left the operating room in satisfactory condition to the recovery room.
[2016-10-21] MEDS: LEVALBUTEROL 1.25 MG/0.5 ML CONCENTRATE NEB NEB SCH ×2 (14:00→20:00)
[2016-10-21 15:41] VITALS: BP 141/78
[2016-10-21] MEDS: FENTANYL/BUPIVACAINE/NACL BAG 250 ML EPIDURAL SCH (16:14)
[2016-10-21] MEDS: KETOROLAC 30 MG/ML VIAL (J1885) IV SCH ×2 (16:14→22:55)
[2016-10-21 16:17] VITALS: BP 133/83
[2016-10-21 16:45] VITALS: BP 115/66
[2016-10-21 20:00] VITALS: BP 100/62
[2016-10-21] MEDS: ADVAIR DISKUS 250/50 INH PWD INH SCH (20:32)
[2016-10-21] MEDS: HEPARIN SOD (PORCINE) 5000 UNITS/ML VIAL SC SCH (20:54)
[2016-10-21] MEDS: DOCUSATE SODIUM 100 MG CAP PO SCH (20:54)
[2016-10-21] MEDS: traZODone 100 MG TAB PO SCH (20:54)
[2016-10-21] MEDS: ESCITALOPRAM OXALATE 10 MG TAB (LEXAPRO) PO SCH (20:54)
[2016-10-21 23:59] VITALS: BP_SYST 101; BP_SYST 130; BP_DIAS 57; BP_DIAS 67
[2016-10-22] MEDS: LEVALBUTEROL 1.25 MG/0.5 ML CONCENTRATE NEB NEB SCH ×4 (01:07→20:00)
[2016-10-22] MEDS: KCL 20MEQ IN D5/NS 1000ML 1,000 ML IV SCH (01:30)
[2016-10-22 04:00] VITALS: BP 122/63
[2016-10-22] MEDS: KETOROLAC 30 MG/ML VIAL (J1885) IV SCH ×4 (04:35→22:12)
[2016-10-22 05:45] LABS: BASO # 0.1 K/mm3 (0.0-0.2); BASO % 0.6 % (0.0-1.0); EOS % 0.4 % (0.0-3.0); LARGE UNSTAINED CELL # 0.1 K/mm3 (0.0-0.4); LARGE UNSTAINED CELL % 0.9 % (0.0-4.0); LYMPH # 0.8 K/mm3 (1.5-4.5); LYMPH % 6.8 % (24.0-44.0); MEAN CORPUSCULAR HEMOGLOBIN 34.6 pg (27.0-33.0); MEAN CORPUSCULAR HGB CONC 33.5 g/dl (32.0-36.5); MEAN CORPUSCULAR VOLUME 103.3 fl (80.0-96.0); MONO # 0.7 K/mm3 (0.0-0.8); MONO % 6.9 % (0.0-5.0); NEUTROPHILS # 9.1 K/mm3 (1.8-7.7); NEUTROPHILS % 84.5 % (36.0-66.0); PLATELET COUNT, AUTOMATED 168 k/mm3 (150-450); RED CELL DISTRIBUTION WIDTH 12.3 % (11.5-14.5); WHITE BLOOD COUNT 10.8 K/mm3 (4.0-10.0)
[2016-10-22 05:58] LABS: ANION GAP 5 MEQ/L (8-16); BLOOD UREA NITROGEN 9 MG/DL (7-18); CALCIUM LEVEL 7.6 MG/DL (8.8-10.2); CARBON DIOXIDE LEVEL 28 MEQ/L (21-32); CHLORIDE LEVEL 108 MEQ/L (98-107); GLOMERULAR FILTRATION RATE > 60.0 (>45); GLUCOSE, FASTING 103 MG/DL (80-110); POTASSIUM SERUM 4.1 MEQ/L (3.5-5.1); SODIUM LEVEL 141 MEQ/L (136-145)
[2016-10-22] MEDS ORDERED: LEVOTHYROXINE 0.088 MG TAB (88 MCG) PO SCH (06:00)
[2016-10-22] MEDS: ADVAIR DISKUS 250/50 INH PWD INH SCH ×2 (07:21→20:49)
[2016-10-22 08:00] VITALS: BP 104/69
[2016-10-22] MEDS: MOM 30ML SUSPENSION UDC PO SCH (09:00)
[2016-10-22] MEDS: HEPARIN SOD (PORCINE) 5000 UNITS/ML VIAL SC SCH ×2 (09:00→21:18)
[2016-10-22] MEDS: PANTOPRAZOLE 40MG TAB (PROTONIX) PO SCH (09:00)
[2016-10-22] MEDS ORDERED: PANTOPRAZOLE 40MG INJ (PROTONIX) (C9113) IV SCH (09:00)
--- NOTE | 2016-10-22 09:20 | REP ---
PA and lateral chest: Comparison is the portable chest of 10/21/2016. The patient is status post left lower lobectomy. The two left thoracotomy tubes are unchanged. There is no pneumothorax. There is subcutaneous emphysema along the left lateral chest wall. This has increased. The left lung is clear. The right lung is clear. However, in the right costophrenic LUZ ELENA and posterior sulcus is effaced suggestive of a right pleural effusion as an interval change. Cardiac size is normal. An epidural catheter is again identified. Impression: New right pleural effusion. Left lower lobectomy. No left pneumothorax. Subcutaneous emphysema along the left lateral chest wall. The two left thoracotomy tubes are unchanged. Epidural catheter. Signed by Melo Maldonado MD 10/22/2016 09:12 A
[2016-10-22] MEDS: VITAMIN D 1,000 INTERNATIONAL UNITS TABLET PO SCH (10:33)
[2016-10-22] MEDS: DOCUSATE SODIUM 100 MG CAP PO SCH ×2 (10:34→21:18)
[2016-10-22 12:00] VITALS: BP 94/62
[2016-10-22] MEDS: FENTANYL/BUPIVACAINE/NACL BAG 250 ML EPIDURAL SCH (13:05)
--- NOTE | 2016-10-22 13:35 | IPN ---
DATE: 10/22/2016 This is now the first postoperative day for Mrs. Burdick. She has had a stable night of surgery. She has some mild pain in her left shoulder. She has been up and around walking. Her vital sings show a maximum temperature (t-max) of 99.9 with a heart rate that ranges between 74 and 83 in a sinus rhythm, respiratory rate that is constant at 20, who is 97 to 98% saturated on 2 liters nasal cannula, and whose blood pressure is ranging between 100/62 to 122/63. Her intake and output the past 24 hours has been recorded as 2462 in and 2305 out for near equality of 157 mL positive. She weighs 46.1 kg today compared to 43 kg yesterday. She still has an air leak and she has put out a considerable amount of output from her chest tube of 500 mL up until midnight and 310 mL since midnight. PHYSICAL EXAMINATION : LUNGS: She has equal breath sounds on either side. There are some scattered rhonchi and rales, which clear with coughing on the left side. Percussion note is full to the diaphragm. CARDIAC EXAM: Without murmurs, clicks, gallops or rubs. I cannot feel her point of maximum impulse (PMI). S1, S2 are normal. ABDOMEN: Soft, nontender. Bowel sounds positive. There is no hepatomegaly. No costovertebral angle tenderness. EXTREMITIES: Show no pretibial edema. No calf tenderness. No differential swelling of the upper extremities. SKIN: Warm, dry and perfused without cyanosis or mottling, including that of the nail beds and knees. NECK: Supple. There is no jugular venous distention. No subcutaneous emphysema. Trachea is midline. MOUTH: Shows her mucous membranes to be pink and moist. Lips and commissures without lesions. There is no thrush. EYES: Show her pupils to be equal and reactive. Extraocular motion intact. Sclerae anicteric. NEUROLOGIC: Shows II through XII intact with gross motor and gross sensation intact. Gait is not tested. PSYCHIATRIC: Shows her to be awake and alert, oriented times three with appropriate mood and affect and conversational. Her white count today is 10.8, hemoglobin and hematocrit of 12.4 and 37.0. Platelet count is 268 and stable. Differential shows 84% neutrophils, 50% lymphocytes, 6% monocytes. There are no immature forms and no toxic granulations. Blood gases have not been done this morning. Chemistries show normal electrolytes with a BUN and creatinine of 9 and 0.6, glucose 103, and a calcium of 7.6. Her chest x-ray shows her lung fully expanded to the chest wall. There is some subcutaneous emphysema on the left and in the supraclavicular fossa. Costophrenic angles are sharp. There are no infiltrates, either on the lateral film or on the PA film. Chest tubes are in good place. Final pathology is still pending. IMPRESSION: 1. Postoperative day #1 status post left upper lobectomy. 2. Adenocarcinoma of 1.5 cm clinically, final pathology pending. Clinical stage 1A disease. 3. Chronic obstructive pulmonary disease (COPD). 4. Anxiety. 5. Hypothyroidism. PLAN AND DISCUSSION: I will not diurese her today. We will continue to encourage ambulate and chest wall expansion. So far I am very pleased with her results.
[2016-10-22 16:00] VITALS: BP 106/64
[2016-10-22 20:00] VITALS: BP 102/65; PULSE 78
[2016-10-22] MEDS: ESCITALOPRAM OXALATE 10 MG TAB (LEXAPRO) PO SCH (21:18)
[2016-10-22] MEDS: traZODone 100 MG TAB PO SCH (21:18)
[2016-10-22] MEDS: SLF 3 ML SYR IV SCH (21:19)
[2016-10-22 23:59] VITALS: BP 91/54
[2016-10-23] VITALS: PULSE 75
[2016-10-23] MEDS: LEVALBUTEROL 1.25 MG/0.5 ML CONCENTRATE NEB NEB SCH ×4 (02:39→18:58)
[2016-10-23 04:00] VITALS: BP 99/51; PULSE 78
[2016-10-23 05:51] LABS: BASO % 0.2 % (0.0-1.0); EOS # 0.3 K/mm3 (0.0-0.50); EOS % 3.8 % (0.0-3.0); LARGE UNSTAINED CELL # 0.1 K/mm3 (0.0-0.4); LYMPH # 0.7 K/mm3 (1.5-4.5); LYMPH % 8.1 % (24.0-44.0); MEAN CORPUSCULAR HEMOGLOBIN 34.7 pg (27.0-33.0); MEAN CORPUSCULAR HGB CONC 33.3 g/dl (32.0-36.5); MEAN CORPUSCULAR VOLUME 104.2 fl (80.0-96.0); MONO # 0.5 K/mm3 (0.0-0.8); MONO % 5.8 % (0.0-5.0); NEUTROPHILS # 6.6 K/mm3 (1.8-7.7); PLATELET COUNT, AUTOMATED 158 k/mm3 (150-450); RED CELL DISTRIBUTION WIDTH 12.2 % (11.5-14.5); WHITE BLOOD COUNT 8.2 K/mm3 (4.0-10.0)
[2016-10-23] MEDS: LEVOTHYROXINE 88MCG TABLET (0.088 MG) PO SCH (05:55)
[2016-10-23] MEDS: SLF 3 ML SYR IV SCH ×3 (05:55→22:31)
[2016-10-23] MEDS: KETOROLAC 30 MG/ML VIAL (J1885) IV SCH ×4 (05:56→23:00)
[2016-10-23 06:04] LABS: ANION GAP 3 MEQ/L (8-16); BLOOD UREA NITROGEN 8 MG/DL (7-18); CALCIUM LEVEL 8.1 MG/DL (8.8-10.2); CARBON DIOXIDE LEVEL 30 MEQ/L (21-32); CHLORIDE LEVEL 111 MEQ/L (98-107); CREATININE FOR GFR 0.62 MG/DL (0.55-1.02); GLOMERULAR FILTRATION RATE > 60.0 (>45); GLUCOSE, FASTING 122 MG/DL (80-110); POTASSIUM SERUM 3.9 MEQ/L (3.5-5.1); SODIUM LEVEL 144 MEQ/L (136-145)
[2016-10-23 08:00] VITALS: BP 95/59
[2016-10-23] MEDS: ADVAIR DISKUS 250/50 INH PWD INH SCH ×2 (08:01→20:43)
[2016-10-23] MEDS: MOM 30ML SUSPENSION UDC PO SCH (09:00)
--- NOTE | 2016-10-23 09:20 | REP ---
Chest PA and lateral views: Comparison is 2016. The two left thoracotomy tubes are unchanged. There is subcutaneous emphysema along the left lateral chest wall and in the left supraclavicular area. This has decreased slightly. There is questionably a small left apical pneumothorax. This could be artifact from superimposed subcutaneous emphysema. The left lung is otherwise clear. Right pleural effusion is again suspected. The right lung is otherwise clear. Cardiac size is normal. Epidural catheter is again noted. Impression: Questionable small left apical pneumothorax versus artifact from superimposed subcutaneous emphysema. Signed by Melo Maldonado MD 10/23/2016 09:11 A
[2016-10-23] MEDS: SLF 3 ML SYR IV PRN (11:15)
[2016-10-23] MEDS: VITAMIN D 1,000 INTERNATIONAL UNITS TABLET PO SCH (11:18)
[2016-10-23] MEDS: DOCUSATE SODIUM 100 MG CAP PO SCH ×2 (11:19→22:30)
[2016-10-23] MEDS: PANTOPRAZOLE 40MG TAB (PROTONIX) PO SCH (11:20)
[2016-10-23] MEDS: HEPARIN SOD (PORCINE) 5000 UNITS/ML VIAL SC SCH ×2 (11:22→22:31)
--- NOTE | 2016-10-23 11:34 | IPN ---
DATE: 10/23/2016 This is now the second postoperative day for Mrs. Le Burdick. Her pain is being well controlled with the epidural. She has been up and around walking. Her vital signs show a T-max of 98.8 with a heart rate that ranges between 52-75 in a sinus rhythm, respiratory rate of 18-20 without the use of accessory muscles who is 100-99% saturated on 2 liters nasal cannula and who has blood pressures ranging between 102/65 to 91/54. Her intake and output over the past 24 hours has been recorded as 2520 in and 2610 out for a negativity of 90 mL. She has put out 560 mL from her chest tube. She weighs 47.2 kg today compared to 46.1 kg yesterday. PHYSICAL EXAMINATION: She has scattered rhonchi throughout particularly on the left side. Most of these clear with coughing. Percussion note is full to the diaphragm. Cardiac exam is without murmurs, clicks, gallops or rubs. I cannot feel her PMI. S1 and S2 are normal. Abdomen is soft, nontender, bowel sounds are positive. There is no hepatomegaly. No CVA tenderness. Extremities show no pretibial edema. No calf tenderness. No differential swelling of the upper extremities. Skin is warm, dry and perfused without cyanosis or mottling including that of the nail beds and knees. Neck is supple. There is no jugular venous distention. No subcutaneous emphysema. Trachea is midline. Mouth shows her mucous membranes to be pink and moist. Lips and commissures are without lesions. No thrush. Eyes show her pupils to be equal and reactive. Extraocular motor intact. Sclera anicteric. Neuro shows II through XII intact with gross motor and gross sensation intact. Gait is not tested. Psychiatric shows her to be awake and alert, oriented times three with appropriate mood and affect and conversational. Her white count today is 8.2 with hemoglobin and hematocrit of 12.3 and 36.9 essentially unchanged from yesterday with platelet count 158 and stable. Differential shows 81% neutrophils, 8% lymphocytes, 5% monocytes. There are no immature forms. No toxic granulations. Her electrolytes are normal with BUN and creatinine of 8 and 0.62, glucose of 122 and calcium 8.1. She remains on Toradol. Her chest x-ray today shows lung fully expanded to the chest wall. There is all obligate volume loss from the lobectomy on the left side. There is minimal subcutaneous emphysema. Chest tubes are in good place. There is a small apical cap of approximately 2- 3 mm at the cupula of the left chest. There is some blunting of the right costophrenic angle. Chest tubes are in good place. Her pathology reveals poorly differentiated adenocarcinoma 1.5 cm in its largest dimension. It does not invade the visceral pleura and all margins are negative. Hilar and intraparenchymal nodes are negative for tumor as are the AP window lymph nodes. She therefore has pathologic [id number] or stage 1A disease. IMPRESSION: 1. Postoperative day #2 status post left lower lobectomy. 2. Chronic obstructive pulmonary disease (COPD). 3. Stage 1A adenocarcinoma left lower lobe. 4. Anxiety. 5. Hypothyroidism. PLAN AND DISCUSSION: Her blood pressure is a little soft and I am not going to be able to diurese her today. We will continue her on the epidural for pain control. Other than that, she is doing quite well. I suspect the pleural effusion is secondary to the additional fluid. UNIQUED
[2016-10-23] MEDS: FENTANYL/BUPIVACAINE/NACL BAG 250 ML EPIDURAL SCH (11:56)
[2016-10-23 12:00] VITALS: BP 112/65
[2016-10-23 16:00] VITALS: BP 122/73
[2016-10-23] MEDS: traZODone 100 MG TAB PO SCH (22:30)
[2016-10-23] MEDS: ESCITALOPRAM OXALATE 10 MG TAB (LEXAPRO) PO SCH (22:30)
[2016-10-23 23:59] VITALS: BP 115/65
[2016-10-24] MEDS: LEVALBUTEROL 1.25 MG/0.5 ML CONCENTRATE NEB NEB SCH ×4 (02:00→20:00)
[2016-10-24 05:34] LABS: BASO % 0.2 % (0.0-1.0); EOS # 0.2 K/mm3 (0.0-0.50); EOS % 2.4 % (0.0-3.0); LARGE UNSTAINED CELL # 0.1 K/mm3 (0.0-0.4); LYMPH # 0.6 K/mm3 (1.5-4.5); MEAN CORPUSCULAR HEMOGLOBIN 35.3 pg (27.0-33.0); MEAN CORPUSCULAR HGB CONC 33.9 g/dl (32.0-36.5); MEAN CORPUSCULAR VOLUME 104.1 fl (80.0-96.0); MONO # 0.4 K/mm3 (0.0-0.8); MONO % 5.9 % (0.0-5.0); NEUTROPHILS # 6.3 K/mm3 (1.8-7.7); NEUTROPHILS % 83.5 % (36.0-66.0); PLATELET COUNT, AUTOMATED 162 k/mm3 (150-450); RED CELL DISTRIBUTION WIDTH 12.1 % (11.5-14.5); WHITE BLOOD COUNT 7.5 K/mm3 (4.0-10.0)
[2016-10-24 05:43] LABS: ANION GAP 5 MEQ/L (8-16); BLOOD UREA NITROGEN 7 MG/DL (7-18); CALCIUM LEVEL 8.7 MG/DL (8.8-10.2); CARBON DIOXIDE LEVEL 32 MEQ/L (21-32); CHLORIDE LEVEL 103 MEQ/L (98-107); CREATININE FOR GFR 0.59 MG/DL (0.55-1.02); GLOMERULAR FILTRATION RATE > 60.0 (>45); GLUCOSE, FASTING 118 MG/DL (80-110); POTASSIUM SERUM 3.8 MEQ/L (3.5-5.1); SODIUM LEVEL 140 MEQ/L (136-145)
[2016-10-24] MEDS: LEVOTHYROXINE 88MCG TABLET (0.088 MG) PO SCH (06:16)
[2016-10-24] MEDS: SLF 3 ML SYR IV SCH ×3 (06:17→21:02)
[2016-10-24] MEDS: KETOROLAC 30 MG/ML VIAL (J1885) IV SCH ×4 (06:17→23:13)
[2016-10-24] MEDS: ADVAIR DISKUS 250/50 INH PWD INH SCH ×2 (07:27→20:22)
[2016-10-24 08:00] VITALS: BP 92/54
--- NOTE | 2016-10-24 08:20 | REP ---
PA and lateral chest: Comparison is 10/23/2016. The two left chest tubes are unchanged. There is a small left apical pneumothorax that has increased slightly. The subcutaneous emphysema along the left lateral chest wall has decreased. There is effacement of the right costophrenic angle suggestive of a right pleural effusion, unchanged. Right lung is otherwise clear. Cardiac size is normal. The epidural catheter is again noted. Signed by Melo Maldonado MD 10/24/2016 08:11 A
[2016-10-24] MEDS: HEPARIN SOD (PORCINE) 5000 UNITS/ML VIAL SC SCH ×2 (09:39→21:02)
[2016-10-24] MEDS: PANTOPRAZOLE 40MG TAB (PROTONIX) PO SCH (09:40)
[2016-10-24] MEDS: VITAMIN D 1,000 INTERNATIONAL UNITS TABLET PO SCH (09:40)
[2016-10-24] MEDS: DOCUSATE SODIUM 100 MG CAP PO SCH ×2 (09:40→21:00)
[2016-10-24] MEDS: MOM 30ML SUSPENSION UDC PO SCH (09:40)
[2016-10-24] MEDS: FENTANYL/BUPIVACAINE/NACL BAG 250 ML EPIDURAL SCH (10:04)
[2016-10-24 12:00] VITALS: BP 102/62
--- NOTE | 2016-10-24 14:27 | IPN ---
DATE: 10/24/2016 It is now the third postoperative day for Mrs. Burdick. Last night, she became a bit confused and in fact called 911 and was having hallucinations. They resolved spontaneously by the nursing staff talking her down. I have decreased her epidural from 10 to 7 today. Her pain is being well controlled. Her vital signs show a T-max of 99.2 with a heart rate that ranges between 80 and 77 in a sinus rhythm, a respiratory rate of 20 to 18 without the use of accessory muscles who is 95-96% saturated on 2 liters nasal cannula. Blood pressure is ranging between 115/65 to 92/54. Intake and output the past 24 hours has been recorded as 2040 in and 3960 out for a negativity of 1900 mL. She has take in 240 mL in by mouth intake. She has put out 3450 mL in urine and 510 in the chest tube. There is still an air leak. The urine output is without any Lasix. Weight today is 47.5 kg, which is the same as yesterday. On physical examination, she has bilateral rhonchi and rales on both sides, greater on the left than the right. Percussion note is full to the diaphragm. Cardiac Exam: Without murmurs, clicks, gallops, or rubs. I cannot feel her PMI. S1, S2 are normal. Abdomen: Soft. Nontender. Bowel sounds are positive. There is no hepatomegaly. No costovertebral angle (CVA) tenderness. Extremities: Show no pretibial edema. No calf tenderness. No differential swelling of the upper extremities. Skin: Warm, dry and perfused. Without cyanosis or mottling, including that of the nail beds and knees. Neck: Supple. There is no jugular venous distention. No subcutaneous emphysema. Trachea is midline. Mouth: Shows her mucous membranes to be pink and moist. Lips and commissures are without lesions. There is no thrush. Eyes: Show her pupils to be equal and reactive. Extraocular movements intact. Sclerae nonicteric. Neurologic: Shows II-XII intact along with gross motor and gross sensation intact. Gait is not tested. Psychiatric shows her to be awake, alert, and oriented times three with appropriate mood and affect and conversational. Her white count today is 7.5, with hemoglobin and hematocrit of 12.2 and 36.1, unchanged from yesterday. Platelet count is 162 and differential shows 83% neutrophils, 7% lymphocytes, 5% monocytes. There are no immature forms and no toxic granulations. Her electrolytes are normal with a BUN and creatinine of 7 and 0.59 with a glucose of 118 and a calcium of 8.7. It should be noted that her chest tube still has an air leak on forceful coughing and talking. Her chest x-ray shows her lung fully expanded to the chest wall, except for a small air space in the cupula. There is minimal subcutaneous emphysema. In fact, there is less today than there was yesterday. The costophrenic angles are sharp and there are no infiltrates, either on the PA or the lateral view. Chest tubes are in excellent position. IMPRESSION: 1. Postoperative day #3 status post left lower lobectomy. 2. Stage IA adenocarcinoma. 3. Chronic obstructive pulmonary disease (COPD). 4. Anxiety. 5. Hypothyroidism. PLAN AND DISCUSSION: I will continue her chest tubes on suction today. I will decrease her epidural hoping that that is the cause of her transient confusion. Today, she is perfectly awake and alert and oriented times three and conversational. I will not diurese her as she is diuresing spontaneously.
[2016-10-24 20:06] VITALS: BP 99/61
[2016-10-24] MEDS: traZODone 100 MG TAB PO SCH (21:01)
[2016-10-24] MEDS: ESCITALOPRAM OXALATE 10 MG TAB (LEXAPRO) PO SCH (21:01)
[2016-10-24 23:59] VITALS: BP 99/56
[2016-10-25] MEDS: LEVALBUTEROL 1.25 MG/0.5 ML CONCENTRATE NEB NEB SCH ×4 (01:54→20:28)
[2016-10-25 04:45] VITALS: BP 132/69
[2016-10-25 05:11] LABS: BASO % 0.2 % (0.0-1.0); EOS # 0.3 K/mm3 (0.0-0.50); EOS % 3.6 % (0.0-3.0); LARGE UNSTAINED CELL # 0.1 K/mm3 (0.0-0.4); LARGE UNSTAINED CELL % 1.2 % (0.0-4.0); LYMPH # 0.7 K/mm3 (1.5-4.5); LYMPH % 7.7 % (24.0-44.0); MEAN CORPUSCULAR HEMOGLOBIN 35.4 pg (27.0-33.0); MEAN CORPUSCULAR HGB CONC 34.2 g/dl (32.0-36.5); MEAN CORPUSCULAR VOLUME 103.3 fl (80.0-96.0); MONO # 0.5 K/mm3 (0.0-0.8); MONO % 6.2 % (0.0-5.0); NEUTROPHILS # 6.5 K/mm3 (1.8-7.7); NEUTROPHILS % 81.1 % (36.0-66.0); PLATELET COUNT, AUTOMATED 194 k/mm3 (150-450); RED CELL DISTRIBUTION WIDTH 12.1 % (11.5-14.5)
[2016-10-25] MEDS: LEVOTHYROXINE 88MCG TABLET (0.088 MG) PO SCH (05:11)
[2016-10-25] MEDS: KETOROLAC 30 MG/ML VIAL (J1885) IV SCH ×4 (05:12→22:01)
[2016-10-25] MEDS: SLF 3 ML SYR IV SCH ×3 (05:14→22:01)
[2016-10-25 05:22] LABS: ANION GAP 5 MEQ/L (8-16); BLOOD UREA NITROGEN 9 MG/DL (7-18); CALCIUM LEVEL 8.5 MG/DL (8.8-10.2); CARBON DIOXIDE LEVEL 34 MEQ/L (21-32); CHLORIDE LEVEL 103 MEQ/L (98-107); CREATININE FOR GFR 0.73 MG/DL (0.55-1.02); GLOMERULAR FILTRATION RATE > 60.0 (>45); GLUCOSE, FASTING 186 MG/DL (80-110); POTASSIUM SERUM 4.7 MEQ/L (3.5-5.1); SODIUM LEVEL 142 MEQ/L (136-145)
[2016-10-25] MEDS: ADVAIR DISKUS 250/50 INH PWD INH SCH ×2 (07:37→21:00)
[2016-10-25 08:00] VITALS: BP 111/70
--- NOTE | 2016-10-25 08:37 | REP ---
PA and lateral chest: Comparison 10/24/2016. The two left chest tubes are unchanged. There is a small left apical pneumothorax and a small pneumothorax in the left costophrenic angle. These are unchanged. Left lung is otherwise clear. The right costophrenic angle is effaced as previously. This could be a pleural adhesion or pleural effusion. There is increased radiodensity inferiorly in the right lung, possibly a developing infiltrate. Cardiac size is normal. The jamil, mediastinum, bony thorax unremarkable. Epidural catheter is again noted. The impression: Left pneumothorax as described. Right lower lobe infiltrate and possible right pleural effusion. Signed by Melo Maldonado MD 10/25/2016 08:29 A
[2016-10-25] MEDS: MOM 30ML SUSPENSION UDC PO SCH (09:24)
[2016-10-25] MEDS: VITAMIN D 1,000 INTERNATIONAL UNITS TABLET PO SCH (09:25)
[2016-10-25] MEDS: DOCUSATE SODIUM 100 MG CAP PO SCH ×2 (09:25→21:59)
[2016-10-25] MEDS: HEPARIN SOD (PORCINE) 5000 UNITS/ML VIAL SC SCH ×2 (09:25→22:00)
[2016-10-25] MEDS: PANTOPRAZOLE 40MG TAB (PROTONIX) PO SCH (09:25)
[2016-10-25] MEDS ORDERED: FUROSEMIDE 20 MG/2 ML VIAL (J1940) IV ONE (11:30)
[2016-10-25 12:00] VITALS: BP 114/68
--- NOTE | 2016-10-25 12:24 | IPN ---
DATE: 10/25/2016 This is now 4th postoperative day for Mrs. Burdick. Pain is being well controlled but she did need to have 1 mL increase in the epidural after walking today. Her vital signs show a T-max of 98.5 with a heart rate that ranges between 79 and 82 in a sinus rhythm, respiratory rate of 18 to 20 without the use of accessory muscles who is 96 to 97% saturated on 2 liters nasal cannula. Blood pressure is ranging between 96/56 to 132/69. Her intake and output for the past 24 hours has been recorded as 5900 in and 2505 out, for a negativity of 900 mL. Weight today is 47.6 kg compared to 47.5 kg yesterday. She has put out 330 mL from the chest tube and there is still an air leak with a forceful cough. The air leak does look to be less. On physical examination, her lungs show crackles and rales during inspiration and expiration on the left hand side. Right side shows normal vesicular sounds. Percussion note is full to the diaphragm. Cardiac exam is without murmurs, clicks, gallops or rubs. I cannot feel her point of maximal impulse (PMI). S1 and S2 are normal. Abdomen is soft and nontender. Bowel sounds are positive. There is no hepatomegaly. No costovertebral angle (CVA) tenderness. Extremities show no pretibial edema. No calf tenderness. No differential swelling of the upper extremities. Skin is warm, dry and perfused without cyanosis or mottling including that of the nail beds and the knees. Neck is supple. There is no jugular venous distention. No subcutaneous emphysema. Trachea is midline. Mouth shows her mucous membranes to be pink and moist. Lips and commissures without lesions. No thrush. Eyes show her pupils to be equal, reactive. Extraocular muscles intact. Sclera anicteric. Neuro shows II through XII intact. Gross motor and gross sensation intact. Gait is not tested. Psychiatric shows her to be awake, alert and oriented times three with appropriate mood, affect and conversational. Her white count today is 8.0 with hemoglobin and hematocrit of 12.0 and 35.0 with a platelet count of 194. Differential is 81.1% neutrophils, 7% lymphocytes, 6% monocytes. There are no immature forms or toxic granulations. Her electrolytes are normal with a BUN and creatinine of 9 and 0.7, calcium of 8.5 and a glucose of 186. Her chest x-ray shows her lung fully expanded to the chest wall except for a very small cupular air space. Subcutaneous emphysema is dissipating. Chest tube remains in good place. I see no infiltrates. IMPRESSION: 1. Postoperative day #4, status post left lower lobectomy. 2. Stage 1A adenocarcinoma. 3. Chronic obstructive pulmonary disease (COPD). 4. Anxiety. 5. Hypothyroidism. PLAN AND DISCUSSION: I will gently diurese her today with 20 mg of Lasix. Her blood pressure is getting to the point where I have some leeway. I am gratified that her air leak looks to be less today. Will continue her chest tubes on suction.
[2016-10-25] MEDS: FENTANYL/BUPIVACAINE/NACL BAG 250 ML EPIDURAL SCH (15:31)
[2016-10-25 16:00] VITALS: BP 98/55
[2016-10-25 19:59] VITALS: BP 102/62
[2016-10-25] MEDS: traZODone 100 MG TAB PO SCH (21:59)
[2016-10-25] MEDS: ESCITALOPRAM OXALATE 10 MG TAB (LEXAPRO) PO SCH (21:59)
[2016-10-26 00:02] VITALS: BP 106/51
[2016-10-26] MEDS: LEVALBUTEROL 1.25 MG/0.5 ML CONCENTRATE NEB NEB SCH ×4 (03:05→20:00)
[2016-10-26] MEDS: KETOROLAC 30 MG/ML VIAL (J1885) IV SCH ×3 (04:52→19:14)
[2016-10-26] MEDS: SLF 3 ML SYR IV SCH ×3 (04:53→22:00)
[2016-10-26] MEDS: LEVOTHYROXINE 88MCG TABLET (0.088 MG) PO SCH (04:53)
[2016-10-26 05:16] VITALS: BP 124/65
[2016-10-26 05:36] LABS: BASO # 0.1 K/mm3 (0.0-0.2); BASO % 0.6 % (0.0-1.0); EOS # 0.3 K/mm3 (0.0-0.50); EOS % 3.3 % (0.0-3.0); LARGE UNSTAINED CELL # 0.1 K/mm3 (0.0-0.4); LARGE UNSTAINED CELL % 1.2 % (0.0-4.0); LYMPH # 0.8 K/mm3 (1.5-4.5); LYMPH % 6.8 % (24.0-44.0); MEAN CORPUSCULAR HEMOGLOBIN 34.3 pg (27.0-33.0); MEAN CORPUSCULAR HGB CONC 33.5 g/dl (32.0-36.5); MEAN CORPUSCULAR VOLUME 102.4 fl (80.0-96.0); MONO # 0.8 K/mm3 (0.0-0.8); MONO % 7.5 % (0.0-5.0); NEUTROPHILS # 8.4 K/mm3 (1.8-7.7); NEUTROPHILS % 80.7 % (36.0-66.0); PLATELET COUNT, AUTOMATED 222 k/mm3 (150-450); RED CELL DISTRIBUTION WIDTH 12.1 % (11.5-14.5); WHITE BLOOD COUNT 10.4 K/mm3 (4.0-10.0)
[2016-10-26 06:04] LABS: ANION GAP 6 MEQ/L (8-16); BLOOD UREA NITROGEN 8 MG/DL (7-18); CALCIUM LEVEL 8.8 MG/DL (8.8-10.2); CARBON DIOXIDE LEVEL 33 MEQ/L (21-32); CHLORIDE LEVEL 102 MEQ/L (98-107); CREATININE FOR GFR 0.66 MG/DL (0.55-1.02); GLOMERULAR FILTRATION RATE > 60.0 (>45); GLUCOSE, FASTING 99 MG/DL (80-110); POTASSIUM SERUM 4.2 MEQ/L (3.5-5.1); SODIUM LEVEL 141 MEQ/L (136-145)
[2016-10-26 08:00] VITALS: BP 103/62
[2016-10-26] MEDS: ADVAIR DISKUS 250/50 INH PWD INH SCH ×2 (08:02→20:01)
--- NOTE | 2016-10-26 08:58 | REP ---
CHEST, TWO VIEWS: Two views of the chest are performed. There are two left chest tubes again noted. There is a tiny left apical pneumothorax, which is essentially stable. Minor atelectatic changes are again see in the left lung base. There appears to be a small right effusion with adjacent mild right basilar atelectasis/infiltrate. The cardiomediastinal infiltrate is unchanged. IMPRESSION: Stable exam. Signed by Melo Sandoval MD 10/26/2016 05:10 P
[2016-10-26] MEDS: MOM 30ML SUSPENSION UDC PO SCH (09:00)
[2016-10-26] MEDS: HEPARIN SOD (PORCINE) 5000 UNITS/ML VIAL SC SCH ×2 (10:37→22:17)
[2016-10-26] MEDS: DOCUSATE SODIUM 100 MG CAP PO SCH ×2 (10:38→22:17)
[2016-10-26] MEDS: PANTOPRAZOLE 40MG TAB (PROTONIX) PO SCH (10:38)
[2016-10-26] MEDS: VITAMIN D 1,000 INTERNATIONAL UNITS TABLET PO SCH (10:38)
[2016-10-26 12:00] VITALS: BP 106/66
[2016-10-26] MEDS ORDERED: FUROSEMIDE 20 MG/2 ML VIAL (J1940) IV ONE (12:00)
[2016-10-26] MEDS: SLF 3 ML SYR IV PRN (12:28)
--- NOTE | 2016-10-26 13:26 | IPN ---
DATE: 10/26/2016 This is now the fifth postoperative day for Mrs. Burdick. She has a one ball air leak. She still put out too much from the chest tube to remove it. She is slightly more under the weather today I suspect secondary to diuresis. Her pain is being well controlled with the epidural. Her vital signs show a T-max of 99.1 with a heart rate that ranges between 77 and 78 in a sinus rhythm, respiratory rate that is constant at 19 who is 94-95% saturated on 3 liters nasal cannula and has blood pressures ranging between 124/65 to 103/62. Her intake and output over the past 24 hours has been recorded at 1320 in and 2700 out for a negativity of 1300 mL. That was in response to 20 mg of Lasix. She has put out 350 mL from the chest tube and has a one bubble air leak with forceful cough. Weight today is 44.9 kg compared to 47.6 kg yesterday. PHYSICAL EXAMINATION: She has some inspiratory rales and rhonchi most of which clear with coughing on the right hand side. Percussion note is full to the diaphragm. Cardiac exam is without murmurs, clicks, gallops or rubs. Rales and rhonchi on the left side. Abdomen is soft, nontender, bowel sounds are positive. There is no hepatomegaly. No CVA tenderness. Extremities show no pretibial edema. No calf tenderness. No differential swelling of the upper extremities. Skin is warm, dry and perfused without cyanosis or mottling including that of the nail beds and knees. Neck is supple. There is no jugular venous distention. No subcutaneous emphysema. Trachea is midline. Mouth shows her mucous membranes to be pink and moist. Lips and commissures are without lesions. No thrush. Eyes show her pupils to be equal and reactive. Extraocular motor intact. Sclera anicteric. Neuro shows II through XII intact with gross motor and gross sensation intact. Gait is not tested. Psychiatric shows her to be awake and alert, oriented times three with appropriate mood and affect and conversational. Her white count today of 10.4 with hemoglobin and hematocrit of 12.1 and 36.0. Platelet count is 222 and stable. Differential shows 80% neutrophils, 6% lymphocytes, 7% monocytes. There are no immature forms, no toxic granulations. Her electrolytes are normal with a BUN and creatinine of 8 and 0.66, glucose of 99 and a calcium of 8.8. Her chest x-ray shows her lung fully expanded to the chest wall. There is a small apical cap at the cupula. Chest tubes are in good place. IMPRESSION: 1. Postop day #5 status post left lower lobectomy. 2. Stage 1A adenocarcinoma. 3. Chronic obstructive pulmonary disease (COPD). 4. Anxiety. 5. Hypothyroidism. PLAN AND DISCUSSION: I will again gently diurese her with 20 mg of Lasix. I will also discontinue her chest tube from suction. I expect I will be able to remove the chest tube in the morning.
[2016-10-26 16:00] VITALS: BP 105/68
[2016-10-26] MEDS: FENTANYL/BUPIVACAINE/NACL BAG 250 ML EPIDURAL SCH (18:21)
[2016-10-26 19:33] VITALS: BP 137/59
[2016-10-26] MEDS: MORPHINE SULF IN 0.9% NACL 100 MG in APPROPRIATE DILUENT 1 EA IV SCH ×2 (20:15)
[2016-10-26] MEDS: ESCITALOPRAM OXALATE 10 MG TAB (LEXAPRO) PO SCH (22:17)
[2016-10-26] MEDS: traZODone 100 MG TAB PO SCH (22:17)
[2016-10-27 00:31] VITALS: BP 126/68
[2016-10-27] MEDS: LEVALBUTEROL 1.25 MG/0.5 ML CONCENTRATE NEB NEB SCH ×4 (02:00→20:00)
[2016-10-27] MEDS: KETOROLAC 30 MG/ML VIAL (J1885) IV SCH ×4 (02:16→21:07)
[2016-10-27 03:56] VITALS: BP 116/72
[2016-10-27 05:09] LABS: BASO % 0.4 % (0.0-1.0); EOS # 0.3 K/mm3 (0.0-0.50); EOS % 2.9 % (0.0-3.0); LARGE UNSTAINED CELL # 0.2 K/mm3 (0.0-0.4); LARGE UNSTAINED CELL % 1.4 % (0.0-4.0); LYMPH # 0.9 K/mm3 (1.5-4.5); LYMPH % 7.4 % (24.0-44.0); MEAN CORPUSCULAR HEMOGLOBIN 34.2 pg (27.0-33.0); MEAN CORPUSCULAR HGB CONC 33.6 g/dl (32.0-36.5); MEAN CORPUSCULAR VOLUME 101.7 fl (80.0-96.0); MONO # 0.7 K/mm3 (0.0-0.8); MONO % 6.7 % (0.0-5.0); NEUTROPHILS # 8.4 K/mm3 (1.8-7.7); NEUTROPHILS % 81.2 % (36.0-66.0); PLATELET COUNT, AUTOMATED 248 k/mm3 (150-450); RED CELL DISTRIBUTION WIDTH 12.1 % (11.5-14.5); WHITE BLOOD COUNT 10.3 K/mm3 (4.0-10.0)
[2016-10-27] MEDS: SLF 3 ML SYR IV SCH ×3 (05:32→21:08)
[2016-10-27] MEDS: LEVOTHYROXINE 88MCG TABLET (0.088 MG) PO SCH (05:32)
[2016-10-27 05:41] LABS: ANION GAP 6 MEQ/L (8-16); BLOOD UREA NITROGEN 9 MG/DL (7-18); CALCIUM LEVEL 8.9 MG/DL (8.8-10.2); CARBON DIOXIDE LEVEL 33 MEQ/L (21-32); CHLORIDE LEVEL 101 MEQ/L (98-107); GLOMERULAR FILTRATION RATE > 60.0 (>45); GLUCOSE, FASTING 109 MG/DL (80-110); POTASSIUM SERUM 3.8 MEQ/L (3.5-5.1); SODIUM LEVEL 140 MEQ/L (136-145)
[2016-10-27 07:40] VITALS: BP 105/70
[2016-10-27] MEDS: ADVAIR DISKUS 250/50 INH PWD INH SCH ×2 (08:01→20:33)
[2016-10-27] MEDS: VITAMIN D 1,000 INTERNATIONAL UNITS TABLET PO SCH (08:05)
[2016-10-27] MEDS: HEPARIN SOD (PORCINE) 5000 UNITS/ML VIAL SC SCH ×2 (08:05→21:08)
[2016-10-27] MEDS: MOM 30ML SUSPENSION UDC PO SCH (08:05)
[2016-10-27] MEDS: PANTOPRAZOLE 40MG TAB (PROTONIX) PO SCH (08:05)
[2016-10-27] MEDS: DOCUSATE SODIUM 100 MG CAP PO SCH ×2 (08:05→21:08)
--- NOTE | 2016-10-27 09:16 | REP ---
CHEST, TWO VIEWS: HISTORY: Left lower lobectomy. COMPARISON: 10/26/2016. There is loss of volume in the left hemithorax. Increased density is present in the left lower lobe consistent with atelectasis unchanged compared to the previous study. A small left apical pneumothorax is present. The right lung is clear. A small right pleural effusion is present. The heart is normal in size. The pulmonary vasculature is normal in appearance. The bony structure is intact. Two chest tubes are present in the left hemithorax. Subcutaneous emphysema is present in the left hemithorax. IMPRESSION: 1. Left lower lobe atelectasis unchanged compared to the previous study. 2. Small left apical pneumothorax unchanged compared to the previous study. 3. Small right pleural effusion unchanged compared to the previous study. Signed by Vaughn Green MD 10/27/2016 09:52 A
[2016-10-27 12:00] VITALS: BP 126/66
[2016-10-27] MEDS ORDERED: FUROSEMIDE 20 MG/2 ML VIAL (J1940) IV ONE (13:15)
[2016-10-27 16:00] VITALS: BP 115/56
--- NOTE | 2016-10-27 18:33 | IPN ---
DATE: 10/27/2016 This is the now the 6th postoperative day for Mrs. Burdick. She still has an air leak. I took her off suction yesterday and her lung has fallen slightly on the chest x-ray; therefore, I have placed her back on suction. Her epidural came out yesterday, and she was in a considerable amount of pain. Anesthesia was called and placed her on a patient-controlled analgesia ([employer]) pump. Her pain is now rated as a 2/10. Her vital signs show a maximum temperature (T max) of 99.9 with a heart rate that ranges between 71 and 97 and is sinus rhythm, respiratory rate of 18 to 20 without the use of accessory muscles who is 97% saturated on 2 liters nasal cannula and whose blood pressure is ranging between 105/70 to 126/68. Her intake and output the past 24 hours has been recorded as 2070 in and 3015 out for a negativity of 945 mL. She has put out 240 mL from the chest tube. She weighs 45 kg today compared to 44.9 kg yesterday. She still has the aforementioned air leak. PHYSICAL EXAMINATION: She has scattered rhonchi throughout both lungs, most of which was cleared with coughing. There was also some inspiratory wheezing in both lungs. Percussion note is full to the diaphragm. Cardiac exam is without murmurs, clicks, gallops or rubs. I cannot feel her point of maximum impulse (PMI). S1, S2 are normal. Abdomen is soft and nontender. Bowel sounds are positive. There is no hepatomegaly. No costovertebral angle tenderness. Extremities show no pretibial edema. No calf tenderness. No differential swelling of the upper extremities. Skin is warm, dry and perfused without cyanosis or mottling, including that of the nail beds and the knees. Neck is supple. There is no jugular venous distention, no subcutaneous emphysema. Trachea is midline. Mouth shows her mucous membranes to be pink and moist. Lips and commissures without lesions. There is no thrush. Eyes show her pupils to be equal and reactive. Extraocular motions intact. Sclerae anicteric. Neurologic shows II-XII intact along with gross motor and gross sensation intact. Gait is not tested. Psychiatric shows her to be awake and alert, oriented times three with appropriate mood and affect and conversational. White count today is 10.3, essentially unchanged from yesterday with a hemoglobin and hematocrit of 12.2 and 36.3, also unchanged from yesterday. Platelet count is 248 and differential shows 81% neutrophils, 7% lymphocytes, 6% monocytes. There are no immature forms. No toxic granulations. Electrolytes are normal except for marginally high total CO2 of 33. BUN and creatinine are 9 and 0.7, glucose of 109 and a calcium of 8.9. Her chest x-ray shows more subcutaneous emphysema. The lung is a little bit more from the chest wall at the cupola. Chest tubes are in good place. There are no infiltrates and costophrenic angles are sharp. The lung does not fully fill the costophrenic angle on the left side. Lateral chest x-ray does now show any infiltrates. IMPRESSION: 1. Postoperative day #6 status post left lower lobectomy. 2. Stage I adenocarcinoma. 3. Chronic obstructive pulmonary disease (COPD). 4. Anxiety. 5. Hypothyroidism. 6. Prolonged air leak, alveolar pleural fistula. PLAN AND DISCUSSION: I will turn her back to suction. I will also again gently diurese her. I am not going to consider a blood patch for the next couple of days. It is a very small air leak, and I am fairly confident that it will eventually close by itself.
[2016-10-27 20:00] VITALS: BP 114/69
[2016-10-27] MEDS: ESCITALOPRAM OXALATE 10 MG TAB (LEXAPRO) PO SCH (21:08)
[2016-10-27] MEDS: traZODone 100 MG TAB PO SCH (21:08)
[2016-10-28] VITALS (14 sets, daily range): BP systolic 90–126; BP diastolic 52–72; O2SAT 88–97
[2016-10-28] MEDS: MORPHINE SULF IN 0.9% NACL 100 MG in APPROPRIATE DILUENT 1 EA IV SCH ×4 (00:35→21:28)
[2016-10-28] MEDS: LEVALBUTEROL 1.25 MG/0.5 ML CONCENTRATE NEB NEB SCH ×6 (02:00→19:01)
[2016-10-28] MEDS: KETOROLAC 30 MG/ML VIAL (J1885) IV SCH ×4 (02:28→20:37)
[2016-10-28] MEDS: SLF 3 ML SYR IV SCH ×3 (05:13→20:39)
[2016-10-28] MEDS: LEVOTHYROXINE 88MCG TABLET (0.088 MG) PO SCH (05:13)
[2016-10-28] MEDS: ADVAIR DISKUS 250/50 INH PWD INH SCH ×2 (07:47→20:05)
[2016-10-28] MEDS: PANTOPRAZOLE 40MG TAB (PROTONIX) PO SCH (08:32)
[2016-10-28] MEDS: DOCUSATE SODIUM 100 MG CAP PO SCH ×2 (08:32→20:38)
[2016-10-28] MEDS: VITAMIN D 1,000 INTERNATIONAL UNITS TABLET PO SCH (08:32)
[2016-10-28] MEDS: MOM 30ML SUSPENSION UDC PO SCH (08:32)
[2016-10-28] MEDS: HEPARIN SOD (PORCINE) 5000 UNITS/ML VIAL SC SCH ×2 (08:33→20:37)
--- NOTE | 2016-10-28 09:25 | REP ---
TWO VIEW CHEST: Two views of the chest are performed and compared with prior study of 10/27/2016. Tiny left apical pneumothorax is stable. There are two left chest tubes in place. There is elevation of the left hemidiaphragm. There is stable bibasilar fibroatelectatic change. Cardiomediastinal silhouette is unchanged. IMPRESSION: Stable exam. Signed by Melo Sandoval MD 10/28/2016 07:43 P
[2016-10-28] MEDS: traZODone 100 MG TAB PO SCH (20:38)
[2016-10-28] MEDS: ESCITALOPRAM OXALATE 10 MG TAB (LEXAPRO) PO SCH (20:38)
[2016-10-29] VITALS: BP 89/53
[2016-10-29] MEDS: LEVALBUTEROL 1.25 MG/0.5 ML CONCENTRATE NEB NEB SCH ×4 (01:15→20:00)
[2016-10-29] MEDS: KETOROLAC 30 MG/ML VIAL (J1885) IV SCH ×4 (02:10→20:52)
[2016-10-29 04:00] VITALS: BP 92/56
[2016-10-29] MEDS: LEVOTHYROXINE 88MCG TABLET (0.088 MG) PO SCH (05:47)
[2016-10-29] MEDS: SLF 3 ML SYR IV SCH ×3 (05:47→22:43)
[2016-10-29 06:06] LABS: BASO % 0.5 % (0.0-1.0); EOS # 0.4 K/mm3 (0.0-0.50); EOS % 2.9 % (0.0-3.0); LARGE UNSTAINED CELL # 0.2 K/mm3 (0.0-0.4); LARGE UNSTAINED CELL % 1.9 % (0.0-4.0); LYMPH # 0.8 K/mm3 (1.5-4.5); LYMPH % 6.7 % (24.0-44.0); MEAN CORPUSCULAR HEMOGLOBIN 34.6 pg (27.0-33.0); MEAN CORPUSCULAR HGB CONC 33.4 g/dl (32.0-36.5); MEAN CORPUSCULAR VOLUME 103.9 fl (80.0-96.0); MONO # 0.7 K/mm3 (0.0-0.8); MONO % 5.7 % (0.0-5.0); NEUTROPHILS # 9.9 K/mm3 (1.8-7.7); NEUTROPHILS % 82.3 % (36.0-66.0); PLATELET COUNT, AUTOMATED 367 k/mm3 (150-450); RED CELL DISTRIBUTION WIDTH 11.9 % (11.5-14.5)
[2016-10-29 06:19] LABS: ANION GAP 4 MEQ/L (8-16); BLOOD UREA NITROGEN 15 MG/DL (7-18); CALCIUM LEVEL 8.8 MG/DL (8.8-10.2); CARBON DIOXIDE LEVEL 36 MEQ/L (21-32); CHLORIDE LEVEL 99 MEQ/L (98-107); CREATININE FOR GFR 0.77 MG/DL (0.55-1.02); GLOMERULAR FILTRATION RATE > 60.0 (>45); GLUCOSE, FASTING 111 MG/DL (80-110); POTASSIUM SERUM 4.2 MEQ/L (3.5-5.1); SODIUM LEVEL 139 MEQ/L (136-145)
[2016-10-29 08:00] VITALS: BP 118/57
[2016-10-29] MEDS: ADVAIR DISKUS 250/50 INH PWD INH SCH ×2 (08:15→20:07)
[2016-10-29] MEDS: PANTOPRAZOLE 40MG TAB (PROTONIX) PO SCH (08:40)
[2016-10-29] MEDS: MOM 30ML SUSPENSION UDC PO SCH (08:40)
[2016-10-29] MEDS: HEPARIN SOD (PORCINE) 5000 UNITS/ML VIAL SC SCH ×2 (08:40→20:52)
[2016-10-29] MEDS: DOCUSATE SODIUM 100 MG CAP PO SCH ×2 (08:40→20:53)
[2016-10-29] MEDS: VITAMIN D 1,000 INTERNATIONAL UNITS TABLET PO SCH (08:40)
--- NOTE | 2016-10-29 08:45 | REP ---
CHEST, TWO VIEWS: HISTORY: Left lower lobectomy. COMPARISON: 10/28/2016 There is loss of volume in the left hemithorax. Increased density is present in the lower lobes, consistent with atelectasis. A small left apical pneumothorax is present, unchanged compared to the previous study. A small right pleural effusion is present. The heart is normal in size. Two chest tubes are present in the left hemithorax. IMPRESSION: 1. Bibasilar atelectasis, unchanged compared to the previous study. 2. Small left apical pneumothorax, unchanged compared to the previous study. Signed by Vaughn Green MD 10/29/2016 08:46 A
--- NOTE | 2016-10-29 11:51 | IPN ---
DATE OF SERVICE: 10/28/2016 Mrs. Burdick has the most miniscule air leak, although it is still present. It is intermittent with cough. Her pain is being well controlled with the patient-controlled analgesia (SERVICE SPECIALIST) pump. Her vital signs show a maximum temperature (Tmax) of 98.5 with a heart rate that ranges between 85 and 77 in a sinus rhythm, respiratory rate of 16-20 without the use of accessory muscles, who is 95% to 99% saturated on 3 liters nasal cannula. Blood pressure is ranging between 90/57 to 126/66. Her intake and output over the past 24 hours has been recorded as 1260 in and 1750 out for a negativity of 490 mL. She has only put 50 mL out of the chest tube, and she has the above-described miniscule air leak. Weight today is 44.8 kg compared to 45.0 kg yesterday. Her preoperative weight was 44.2 kg. On physical examination, she has coarse rhonchi and crackles on the left side, most of which would clear with coughing. Percussion note is full to the diaphragm. Cardiac examination is without murmurs, clicks, gallops, or rubs. I cannot feel her point of maximum impulse (PMI). S1 and S2 are normal. Abdomen is soft and nontender. Bowel sounds are positive. There is no hepatomegaly. No costovertebral angle tenderness. Extremities show no pretibial edema. No calf tenderness. No differential swelling of the upper extremities. Skin is warm, dry, and perfused without cyanosis or mottling, including that of the nail beds and the knees. Neck is supple. There is no jugular venous distention, no subcutaneous emphysema. Trachea is midline. Mouth shows her mucous membranes to be pink and moist. Lips and commissures without lesions. There is no thrush. Eyes show her pupils to be equal and reactive. Extraocular motions intact. Sclerae anicteric. Neurologic shows II-XII intact, along with gross motor and gross sensation intact. Gait is not tested. Psychiatric shows her to be awake and alert, oriented times three, with appropriate mood and affect and conversational. White count today is 10.3, with a hemoglobin and hematocrit of 12.2 and a platelet count of 248. Differential shows 81% neutrophils, 7% lymphocytes, 6% monocytes. There are no immature forms. No toxic granulations. Her electrolytes are normal with a BUN and creatinine of 9 and 0.7, a glucose of 109, and a calcium of 8.9. A chest x-ray today shows a marked improvement in the subcutaneous emphysema. The lung is now fully expanded to the chest wall. Costophrenic angles are sharp, and I see no infiltrates, either on the PA or the lateral view. Chest tubes are in good place. IMPRESSION: 1. Postoperative day #7, status post left lower lobectomy. 2. Stage I adenocarcinoma. 3. Chronic obstructive pulmonary disease (COPD). 4. Anxiety. 5. Hypothyroidism. 6. Alveolar pleural fistula, much less. PLAN AND DISCUSSION: I will keep her on suction today, again. I am not going to diurese her. Because the air leak is so miniscule, I am not going to undertake a blood patch at this point in time.
[2016-10-29 12:00] VITALS: BP 92/53
[2016-10-29] MEDS ORDERED: SODIUM CHLORIDE 0.9% INJ 10 ML SYR IV PRN (15:45)
--- NOTE | 2016-10-29 16:13 | REP ---
PORTABLE CHEST: AP supine film of the chest is performed. Two left chest tubes are again noted. There is a small left basilar pneumothorax. There is mild pleural fluid seen in the left apex. There is mild elevation of a left hemidiaphragm with atelectatic change in the left lung base. The right lung is unchanged in appearance. Left central venous catheter is seen with the tip in the superior vena cava. Signed by Melo Sandoval MD 10/29/2016 04:31 P
[2016-10-29 19:59] VITALS: BP 128/61
[2016-10-29] MEDS: ESCITALOPRAM OXALATE 10 MG TAB (LEXAPRO) PO SCH (20:53)
[2016-10-29] MEDS: traZODone 100 MG TAB PO SCH (20:53)
[2016-10-29] MEDS: SODIUM CHLORIDE 0.9% INJ 10 ML SYR IV SCH (22:43)
--- NOTE | 2016-10-29 22:48 | IPN ---
DATE: 10/29/2016 Mrs. Burdick still has a small air leak. It is now postoperative day #8, and I am going to undertake a blood patch. Her pain is being well controlled, both at the incision and the chest tube insertion sites. Her vital signs show a maximum temperature (T max) of 98.2 with a heart rate that ranges between 73 and 87 and is sinus rhythm, respiratory rate of 16 to 20 without the use of accessory muscles who is 98 to 93% saturated on 3 liters nasal cannula and whose blood pressure is ranging between 89/53 to 118/57. Her intake and output over the past 24 hours has been recorded as 1440 in and 1175 out for a positivity of 265 mL. She has put 25 mL out the chest tube, and there is still the above-mentioned air leak. Her weight today is 44.1 kg compared to 44.8 kg yesterday. PHYSICAL EXAMINATION: She has equal breath sounds on either side. There is some occasional rhonchi and rales, which clear with coughing. Percussion note is full to the diaphragm. Cardiac exam is without murmurs, clicks, gallops or rubs. I cannot feel her point of maximum impulse (PMI). S1, S2 are normal. Abdomen is soft and nontender. Bowel sounds are positive. There is no hepatomegaly. No costovertebral angle tenderness. Extremities show no pretibial edema. No calf tenderness. No differential swelling of the upper extremities. Skin is warm, dry and perfused without cyanosis or mottling, including that of the nail beds and the knees. Neck is supple. There is no jugular venous distention, no subcutaneous emphysema. Trachea is midline. Mouth shows her mucous membranes to be pink and moist. Lips and commissures without lesions. There is no thrush. Eyes show her pupils to be equal and reactive. Extraocular motions are intact. Sclerae anicteric. Neurologic shows II-XII intact along with gross motor and gross sensation intact. Gait is not tested. Psychiatric shows her to be awake and alert, oriented times three with appropriate mood and affect and conversational. Her white count today is 12.0 with a hemoglobin and hematocrit of 11.7 and 35.0 and a platelet count of 367. Differential shows 82% neutrophils, 6% lymphocytes, 5% monocytes. There are no immature forms. No toxic granulations. Her electrolytes are normal today with a BUN and creatinine of 15 and 0.77, glucose of 111 and a calcium of 8.8. Her chest x-ray shows still an apical air space. The costophrenic angle looks also not to be filled with lung with a small air fluid level. All the subcutaneous emphysema is gone. Chest tubes are in good place. There are no infiltrates. IMPRESSION: 1. Postoperative day #8 status post left lower lobectomy. 2. Stage 1 adenocarcinoma. 3. Chronic obstructive pulmonary disease (COPD). 4. Anxiety. 5. Hypothyroidism. 6. Alveolar pleural fistula. PLAN AND DISCUSSION: I will place a blood patch today after placing a central line. We will keep the chest tubes clamped for 4 hours at which time we will unclamp them and keep the Pleur-evac above her chest.
[2016-10-29 23:55] VITALS: BP 110/70
[2016-10-30] VITALS (7 sets, daily range): BP systolic 97–126; BP diastolic 52–67; O2SAT 96
[2016-10-30] MEDS: LEVALBUTEROL 1.25 MG/0.5 ML CONCENTRATE NEB NEB SCH ×4 (02:00→20:00)
[2016-10-30] MEDS: KETOROLAC 30 MG/ML VIAL (J1885) IV SCH ×4 (02:00→21:32)
[2016-10-30 04:36] LABS: BASO # 0.1 K/mm3 (0.0-0.2); BASO % 0.5 % (0.0-1.0); EOS # 0.4 K/mm3 (0.0-0.50); EOS % 3.3 % (0.0-3.0); LARGE UNSTAINED CELL # 0.2 K/mm3 (0.0-0.4); LARGE UNSTAINED CELL % 1.2 % (0.0-4.0); LYMPH # 0.9 K/mm3 (1.5-4.5); LYMPH % 5.9 % (24.0-44.0); MEAN CORPUSCULAR HEMOGLOBIN 33.4 pg (27.0-33.0); MEAN CORPUSCULAR HGB CONC 32.9 g/dl (32.0-36.5); MEAN CORPUSCULAR VOLUME 101.6 fl (80.0-96.0); MONO # 0.5 K/mm3 (0.0-0.8); MONO % 4.1 % (0.0-5.0); NEUTROPHILS # 11.1 K/mm3 (1.8-7.7); NEUTROPHILS % 85.2 % (36.0-66.0); PLATELET COUNT, AUTOMATED 391 k/mm3 (150-450); RED CELL DISTRIBUTION WIDTH 12.1 % (11.5-14.5); WHITE BLOOD COUNT 13.1 K/mm3 (4.0-10.0)
[2016-10-30 05:22] LABS: ANION GAP 6 MEQ/L (8-16); BLOOD UREA NITROGEN 16 MG/DL (7-18); CALCIUM LEVEL 8.5 MG/DL (8.8-10.2); CARBON DIOXIDE LEVEL 33 MEQ/L (21-32); CHLORIDE LEVEL 98 MEQ/L (98-107); CREATININE FOR GFR 0.64 MG/DL (0.55-1.02); GLOMERULAR FILTRATION RATE > 60.0 (>45); GLUCOSE, FASTING 102 MG/DL (80-110); POTASSIUM SERUM 4.3 MEQ/L (3.5-5.1); SODIUM LEVEL 137 MEQ/L (136-145)
[2016-10-30] MEDS: SLF 3 ML SYR IV SCH ×3 (05:53→22:00)
[2016-10-30] MEDS: SODIUM CHLORIDE 0.9% INJ 10 ML SYR IV SCH ×3 (05:57→21:35)
[2016-10-30] MEDS: LEVOTHYROXINE 88MCG TABLET (0.088 MG) PO SCH (05:57)
[2016-10-30] MEDS: ADVAIR DISKUS 250/50 INH PWD INH SCH ×2 (07:38→20:30)
[2016-10-30] MEDS: PANTOPRAZOLE 40MG TAB (PROTONIX) PO SCH (08:44)
[2016-10-30] MEDS: MOM 30ML SUSPENSION UDC PO SCH (08:44)
[2016-10-30] MEDS: DOCUSATE SODIUM 100 MG CAP PO SCH ×2 (08:44→21:32)
[2016-10-30] MEDS: VITAMIN D 1,000 INTERNATIONAL UNITS TABLET PO SCH (08:44)
[2016-10-30] MEDS: HEPARIN SOD (PORCINE) 5000 UNITS/ML VIAL SC SCH ×2 (08:45→21:32)
--- NOTE | 2016-10-30 10:26 | REP ---
CHEST, TWO VIEWS: Two views of the chest are performed and compared to a prior study of 10/29/2016. There is a small left apical pneumothorax and a small amount of left apical pleural fluid. There is a small left basilar pneumothorax. Two left chest tubes remain in place. Streaky opacities in the right base are stable. The cardiomediastinal silhouette is unchanged. Left central venous catheter is seen with the tip of junction of the superior vena cava and right atrium. IMPRESSION: Small left hydropneumothorax with two left chest tubes in place. Signed by Melo Sandoval MD 10/30/2016 05:19 P
--- NOTE | 2016-10-30 13:04 | RO ---
DATE OF PROCEDURE: 10/29/2016 PREPROCEDURE DIAGNOSIS: Alveolar pleural fistula, need for blood patch and vascular access. POSTPROCEDURE DIAGNOSIS: Alveolar pleural fistula, need for blood patch and vascular access. SURGEON: García Saucedo MD TRUCK DRIVER FLATBED: ANESTHESIA: PROCEDURE: Insertion of left subclavian central line. DESCRIPTION OF PROCEDURE: The patient's left infraclavicular fossa was prepped and draped in the usual sterile fashion. It was infiltrated with 1% Xylocaine and the vein was found on the first pass. The vein was wired without difficulty and the tract was dilated. Triple lumen catheter was placed by Seldinger technique. Ports were aspirated and flushed without difficulty. The catheter was secured to the chest wall with two #3-0 silk sutures. The patient tolerated the procedure well and a chest x-ray is pending.
--- NOTE | 2016-10-30 13:10 | RO ---
DATE OF PROCEDURE: 10/29/2016 PREPROCEDURE DIAGNOSIS: Alveolar pleural fistula. POSTPROCEDURE DIAGNOSIS: Alveolar pleural fistula. SURGEON: García Saucedo MD ROOF BOLTER HELPER: ANESTHESIA: PROCEDURE: Lung pleurodesis blood patch. DESCRIPTION OF PROCEDURE: Through a previously placed central line, 120 mL of blood was withdrawn in 60 mL increment, all the while monitoring her pressure. The anterior chest tube was then disconnected and prepped and draped in the usual sterile fashion. 120 mL of blood was then instilled into the chest. The chest tube was reclamped, as was the posterior chest tube and reconnected to the Pleur-evac off suction. The patient was then turned from side to side in order to distribute the blood. She was then turned in Trendelenburg position for 15 minutes. This was to distribute the blood superiorly. The patient tolerated the procedure well and the tubes will be unclamped in four hours.
[2016-10-30] MEDS: MORPHINE SULF IN 0.9% NACL 100 MG in APPROPRIATE DILUENT 1 EA IV SCH ×2 (14:12)
[2016-10-30] MEDS: traZODone 100 MG TAB PO SCH (21:31)
[2016-10-30] MEDS: ESCITALOPRAM OXALATE 10 MG TAB (LEXAPRO) PO SCH (21:32)
[2016-10-30] MEDS ORDERED: ONDANSETRON 4MG/2ML VIAL (J2405) IV PRN (22:45)
[2016-10-30] MEDS ORDERED: EPIDURAL/PCA KEYS XX PRN (22:45)
[2016-10-30] MEDS ORDERED: diphenhydrAMINE INJ 50MG/ML VIAL (J1200) IV PRN (22:45)
[2016-10-30] MEDS ORDERED: NALBUPHINE HCL 10 MG/ML AMP (J2300) IV PRN (22:45)
[2016-10-30] MEDS ORDERED: NALOXONE INJ 0.4 MG/1 ML VIAL (J2310) IV PRN (22:45)
[2016-10-30] MEDS ORDERED: MORPHINE 1MG/ML IN 0.9% NACL 100ML IV BAG IV PRN (22:45)
[2016-10-30] MEDS: NS 1,000 ML IV SCH (22:53)
[2016-10-31] VITALS: BP 95/53
[2016-10-31] MEDS ORDERED: FUROSEMIDE 100 MG/10 ML VIAL (J1940) As Ordered ONE (01:35)
[2016-10-31] MEDS ORDERED: NITROGLYCERIN 2% OINT 1 GM *U/D* PKT As Ordered ONE (01:36)
[2016-10-31] MEDS: LEVALBUTEROL 1.25 MG/0.5 ML CONCENTRATE NEB NEB SCH ×4 (01:48→20:00)
[2016-10-31] MEDS: KETOROLAC 30 MG/ML VIAL (J1885) IV SCH ×3 (02:56→15:03)
[2016-10-31 04:00] VITALS: BP 96/59
[2016-10-31] MEDS: LEVOTHYROXINE 88MCG TABLET (0.088 MG) PO SCH (05:23)
[2016-10-31] MEDS: SODIUM CHLORIDE 0.9% INJ 10 ML SYR IV SCH ×3 (05:23→20:31)
[2016-10-31] MEDS: SLF 3 ML SYR IV SCH ×3 (06:00→20:31)
[2016-10-31 06:16] LABS: BASO % 0.4 % (0.0-1.0); EOS # 0.4 K/mm3 (0.0-0.50); EOS % 3.1 % (0.0-3.0); LARGE UNSTAINED CELL # 0.2 K/mm3 (0.0-0.4); LARGE UNSTAINED CELL % 1.3 % (0.0-4.0); LYMPH # 1.1 K/mm3 (1.5-4.5); MEAN CORPUSCULAR HEMOGLOBIN 34.1 pg (27.0-33.0); MEAN CORPUSCULAR HGB CONC 33.8 g/dl (32.0-36.5); MEAN CORPUSCULAR VOLUME 100.8 fl (80.0-96.0); MONO # 0.6 K/mm3 (0.0-0.8); MONO % 4.3 % (0.0-5.0); NEUTROPHILS # 11.5 K/mm3 (1.8-7.7); PLATELET COUNT, AUTOMATED 433 k/mm3 (150-450); RED CELL DISTRIBUTION WIDTH 12.1 % (11.5-14.5); WHITE BLOOD COUNT 13.6 K/mm3 (4.0-10.0)
--- NOTE | 2016-10-31 06:23 | IPN ---
DATE: 10/30/2016 Mrs. Burdick is being fairly well controlled with the patient controlled analgesia (ARMED CUSTOM PROTECTION OFFICER) pump. Her vital signs show a maximum temperature (Tmax) of 99.1 with a heart rate that ranges between 80-96 and is sinus rhythm, respiratory rate of 16-18 without the use of accessory muscles who is 93-97% saturated on 3 liters nasal cannula. Blood pressure is ranging between 102/65 to 126/52. Intake and output over the past 24 hours has been recorded as 585 in and 795 out for a negativity of 210 mL. She has put out 45 mL from the chest tube There is still a small air leak. On physical examination, her lungs show equal breath sounds on either side. Percussion note is full to the diaphragm. Cardiac exam is without murmurs, clicks, gallops or rubs. I cannot feel her point of maximum impulse (PMI). S1, S2 are normal. Abdomen is soft and nontender. Bowel sounds are positive. There is no hepatomegaly. No costovertebral angle tenderness. Extremities show no pretibial edema. No calf tenderness. No differential swelling of the upper extremities. Skin is warm, dry and perfused without cyanosis or mottling, including that of the nail beds and the knees. Neck is supple. There is no jugular venous distention, no subcutaneous emphysema. Trachea is midline. Mouth shows her mucous membranes to be pink and moist. Lips and commissures without lesions. There is no thrush. Eyes show her pupils to be equal and reactive. Extraocular motions are intact. Sclerae anicteric. Neuro shows II-XII intact along with gross motor and gross sensation intact. Gait is not tested. Psychiatric shows her to be awake and alert, oriented times three with appropriate mood and affect and conversational. Her white count today is 15.1, up from 12.0 yesterday. Hemoglobin and hematocrit is 11.3 and 34.3, essentially unchanged from yesterday, with platelet count of 391. Differential shows 65% neutrophils, 5% lymphocytes, 4% monocytes. There are no immature forms. No toxic granulations. Her electrolytes are essentially normal with a marginally high total CO2 of 33. BUN and creatinine are 60 and 0.64 with a glucose of 102 and a calcium of 8.5. Chest x-ray shows an apical air space along with a subpulmonic air space. There is minimal subcutaneous emphysema, if any. There are no infiltrates and the mediastinal is in the midline. IMPRESSION: 1. Postoperative day #9 status post left lower lobectomy. 2. Stage 1 adenocarcinoma. 3. Chronic obstructive pulmonary disease (COPD). 4. Anxiety. 5. Hypothyroidism. 6. Alveolar pleural fistula. As she still has an air leak, I will undertake a second blood patch today. She has tolerated the blood patch as well. Hopefully, the second one will take are of the problem.
[2016-10-31 06:35] LABS: ANION GAP 4 MEQ/L (8-16); BLOOD UREA NITROGEN 10 MG/DL (7-18); CALCIUM LEVEL 8.6 MG/DL (8.8-10.2); CARBON DIOXIDE LEVEL 34 MEQ/L (21-32); CHLORIDE LEVEL 102 MEQ/L (98-107); CREATININE FOR GFR 0.61 MG/DL (0.55-1.02); GLOMERULAR FILTRATION RATE > 60.0 (>45); GLUCOSE, FASTING 101 MG/DL (80-110); POTASSIUM SERUM 4.7 MEQ/L (3.5-5.1); SODIUM LEVEL 140 MEQ/L (136-145)
[2016-10-31] MEDS: ADVAIR DISKUS 250/50 INH PWD INH SCH ×2 (07:28→20:21)
[2016-10-31 08:00] VITALS: BP 119/71
[2016-10-31] MEDS: VITAMIN D 1,000 INTERNATIONAL UNITS TABLET PO SCH (08:35)
[2016-10-31] MEDS: HEPARIN SOD (PORCINE) 5000 UNITS/ML VIAL SC SCH ×2 (08:35→20:31)
[2016-10-31] MEDS: PANTOPRAZOLE 40MG TAB (PROTONIX) PO SCH (08:35)
[2016-10-31] MEDS: MOM 30ML SUSPENSION UDC PO SCH (08:35)
[2016-10-31] MEDS: DOCUSATE SODIUM 100 MG CAP PO SCH ×2 (08:35→20:30)
--- NOTE | 2016-10-31 08:36 | REP ---
Chest x-ray: Two views. History: Status post left lower lobectomy. Comparison chest x-ray October 30, 2016. Findings: Two left chest tubes remain in place one anteriorly position and the other posteriorly. There is a small amount of air and fluid in the left lateral pleural angle. Some apical pleural thickening is seen with less apical air today. There is plate-like atelectasis in the right lower lobe again noted somewhat improved. No new infiltrate is seen. Cardiomediastinal silhouette is unchanged. A left subclavian central venous line terminates in the expected location of the superior vena cava. EKG electrodes are seen. Impression: Post thoracotomy changes on the left. Discoid atelectasis on the right somewhat improved. Signed by Darron Valdivia MD 10/31/2016 09:54 A
[2016-10-31 12:00] VITALS: BP 126/57
--- NOTE | 2016-10-31 12:48 | RO ---
DATE OF PROCEDURE: 10/30/2016 PREPROCEDURE DIAGNOSIS: Alveolar pleural fistula. POSTPROCEDURE DIAGNOSIS: Alveolar pleural fistula. PROCEDURE: Blood patch for pleurodesis left side. SURGEON: García Saucedo MD SODA DRIER FEEDER: ANESTHESIA: DESCRIPTION OF PROCEDURE: Patient's anterior chest tube was disconnected and sterilely prepped and draped. 120 mL of blood withdrawn from the subclavian central line was then instilled into the chest. Chest tube was reclamped, and the patient was turned from side to side in order to distribute the blood. Patient tolerated the procedure well, and the tubes will remain clamped for the next 4 hours.
[2016-10-31 16:00] VITALS: BP 90/61
[2016-10-31 20:00] VITALS: BP 107/68
[2016-10-31] MEDS: ESCITALOPRAM OXALATE 10 MG TAB (LEXAPRO) PO SCH (20:30)
[2016-10-31] MEDS: traZODone 100 MG TAB PO SCH (20:30)
[2016-10-31] MEDS: NS 1,000 ML IV SCH (22:36)
[2016-11-01] VITALS (7 sets, daily range): BP systolic 98–142; BP diastolic 50–68
[2016-11-01] MEDS: LEVALBUTEROL 1.25 MG/0.5 ML CONCENTRATE NEB NEB SCH ×4 (02:00→20:00)
[2016-11-01] MEDS: LEVOTHYROXINE 88MCG TABLET (0.088 MG) PO SCH (05:45)
[2016-11-01] MEDS: SODIUM CHLORIDE 0.9% INJ 10 ML SYR IV SCH ×3 (05:46→21:43)
[2016-11-01] MEDS: SLF 3 ML SYR IV SCH ×3 (05:57→21:43)
[2016-11-01 06:29] LABS: MEAN CORPUSCULAR HEMOGLOBIN 34.1 pg (27.0-33.0); MEAN CORPUSCULAR HGB CONC 33.1 g/dl (32.0-36.5); PLATELET COUNT, AUTOMATED 529 k/mm3 (150-450); WHITE BLOOD COUNT 16.5 K/mm3 (4.0-10.0)
--- NOTE | 2016-11-01 06:36 | IPN ---
DATE: 10/31/2016 This is now the 10th postoperative day for Mrs. Burdick. She has had a stable 24 hours after her second blood patch yesterday. Yesterday afternoon after removed from the clamps, there was no leak. However, today there is a very small intermittent leak. Other than feeling frustrated, she is doing well. Her vital signs show a maximum temperature (Tmax) of 99.2 with a heart rate that ranges between 86-79 and is sinus rhythm, respiratory rate of 18-16 without the use of accessory muscles who is 96% saturated on 3 liters nasal cannula and whose blood pressure is ranging between 115/67 to 95/53. Her intake and output over the past 24 hours has been recorded as 1750 in and 3517 out for a negativity of 1600 mL. This is without Lasix and spontaneous diuresis. She put out 42 mL from the chest tube and there is an intermittent air leak. Her weight today is 43.7 kg, which is the same as yesterday's. On physical examination, her lungs show scattered rhonchi on both sides, which clear with coughing. Percussion note is full to the diaphragm. There is no subcutaneous emphysema over the chest wall. Cardiac exam is without murmurs, clicks, gallops or rubs. I cannot feel her point of maximum impulse (PMI). S1, S2 are normal. Abdomen is soft and nontender. Bowel sounds are positive. There is no hepatomegaly. No costovertebral angle (CVA) tenderness. Extremities show no pretibial edema, no calf tenderness. No differential swelling of the upper extremities. Skin is warm, dry and perfused without cyanosis or mottling, including that of the nail beds and the knees. Neck is supple. There is no jugular venous distention, no subcutaneous emphysema. Trachea is midline. Mouth shows her mucous membranes to be pink and moist. Lips and commissures without lesions. No thrush. Eyes show her pupils to be equal and reactive. Extraocular motions are intact. Sclerae anicteric. Neuro shows II-XII intact along with gross motor and gross sensation intact. Gait is not tested. Psychiatric shows her to be awake and alert, oriented times three with appropriate mood and affect and conversational. Her white count today is 13.6, slightly up from 13.1 yesterday. Hemoglobin and hematocrit 10.9 and 32.1 compared to 11.7 and 35.0 prior to both blood patches. Platelet count is 433 and stable. Differential shows 84% neutrophils, 7% lymphocytes, 4% monocytes. There are no immature forms. No toxic granulations. Her electrolytes are normal with a BUN and creatinine of 10 and 0.61. She has a marginally high total CO2 of 34, consistent with her chronic obstructive pulmonary disease (COPD). Glucose is 102 with a calcium of 8.6. Her chest x-ray now shows an apical cap filled with blood from her blood patch. There is still a small separation inferiorly at the inferior costophrenic angle. There is no subcutaneous emphysema seen at all. I seen no infiltrates either on the lateral or on the PA film. IMPRESSION: 1. Postoperative day #10 status post left lower lobectomy. 2. Stage 1 adenocarcinoma. 3. Chronic obstructive pulmonary disease. 4. Anxiety. 5. Hypothyroidism. 6. Alveolar pleural fistula now intermittent. PLAN AND DISCUSSION: I am going to just leave her off suction today. I am not going do another blood patch. This looks to be an intermittent leak and hopefully it will stop very soon.
[2016-11-01 06:57] LABS: ANION GAP 5 MEQ/L (8-16); BLOOD UREA NITROGEN 7 MG/DL (7-18); CALCIUM LEVEL 8.9 MG/DL (8.8-10.2); CARBON DIOXIDE LEVEL 33 MEQ/L (21-32); CHLORIDE LEVEL 102 MEQ/L (98-107); CREATININE FOR GFR 0.62 MG/DL (0.55-1.02); GLOMERULAR FILTRATION RATE > 60.0 (>45); GLUCOSE, FASTING 105 MG/DL (80-110); POTASSIUM SERUM 4.7 MEQ/L (3.5-5.1); SODIUM LEVEL 140 MEQ/L (136-145)
[2016-11-01] MEDS: ADVAIR DISKUS 250/50 INH PWD INH SCH ×2 (07:18→21:07)
[2016-11-01 07:26] LABS: BANDS 4 % (< 11); EOSINOPHILS 5 % (0-5)
--- NOTE | 2016-11-01 08:57 | REP ---
Chest x-ray: Two views. History: Chest tube. Comparison study: October 31, 2016. Findings: Two left chest tubes are again noted in place unchanged in position. A left subclavian catheter terminates in the expected location of the superior vena cava. EKG electrodes are seen. There is a tiny amount of loculated hydropneumothorax at the left base and a small bubble of air is seen at the left apex unchanged from yesterday's radiographs. Improved discoid atelectasis is seen in the right base. Right lung is otherwise clear. Heart size is unchanged. Impression: Improving right base plate-like atelectasis. Otherwise unchanged. Signed by Darron Valdivia MD 11/01/2016 09:02 A
[2016-11-01] MEDS: MOM 30ML SUSPENSION UDC PO SCH (09:00)
[2016-11-01] MEDS: PANTOPRAZOLE 40MG TAB (PROTONIX) PO SCH (09:08)
[2016-11-01] MEDS: VITAMIN D 1,000 INTERNATIONAL UNITS TABLET PO SCH (09:09)
[2016-11-01] MEDS: HEPARIN SOD (PORCINE) 5000 UNITS/ML VIAL SC SCH ×2 (09:09→21:44)
[2016-11-01] MEDS: DOCUSATE SODIUM 100 MG CAP PO SCH ×2 (09:09→21:45)
--- NOTE | 2016-11-01 14:22 | IPN ---
DATE: 11/01/2016 It is now the 11th postoperative day for Mrs. Burdick. The nursing staff states that they report intermittent air leak, and when I see her today, there is no air leak. I am going to consider an intermittent air leak, and I am going to clamp her tubes today to see what happens. Her vital signs show a maximum temperature (T max) of 99.6 with a heart rate that ranges between 74 and 89 and is sinus rhythm, respiratory rate of 18-20 without the use of accessory muscles who is 98-93T saturated on 3 liters nasal cannula. Her blood pressure is ranging between 142/68 to 90/61. Her intake and output the past 24 hours has been recorded as 1800 mL in and 2565 mL out for a negativity of 700 mL. She has put 140 mL out the chest tube. Weight today is 45 kg compared to 43.7 kg yesterday. On physical examination, her lungs show nearly normal vesicular sounds. I hear no wheezing, rhonchi or rales. Percussion note is full to the diaphragm. Cardiac exam is without murmurs, clicks, gallops or rubs. I cannot feel her point of maximum impulse (PMI). S1, S2 are normal. Abdomen is soft and nontender. Bowel sounds are positive. There is no hepatomegaly. No costovertebral angle tenderness. Extremities show no pretibial edema. No calf tenderness. No differential swelling of the upper extremities. Skin is warm, dry and perfused without cyanosis or mottling, including that of the nail beds and the knees. Neck is supple. There is no jugular venous distention, no subcutaneous emphysema. Trachea is midline. Mouth shows her mucous membranes to be pink and moist. Lips and commissures without lesions. There is no thrush. Eyes show her pupils to be equal and reactive. Extraocular motions intact. Sclerae anicteric. Neurologic shows II-XII intact along with gross motor and gross sensation intact. Gait is not tested. Psychiatric shows her to be awake and alert, oriented times three with appropriate mood and affect and conversational. Her white count today is 16.5, up from 13.6 yesterday. Hemoglobin and hematocrit 11.7 and 35.2, increased from 10.9 and 32.1, probably secondary to hemoconcentration. Platelet count is 529 and differential shows 76% neutrophils, 4% bands, 5% lymphocytes, 7% monocytes. Her chemistries today show normal electrolytes with a marginally high total CO2 of 33 and a BUN and creatinine of 7 and 0.62, glucose of 105 and a calcium of 8.9. Her chest x-ray today shows her apical air space filled with most likely blood from her blood patch. There is still an air space in the left costophrenic angle. Chest tubes in good place. There is no subcutaneous emphysema and trachea is in the midline. I see no infiltrates. IMPRESSION: 1. Postoperative day #11 status post left lower lobectomy. 2. Stage 1 adenocarcinoma. 3. Chronic obstructive pulmonary disease (COPD). 4. Anxiety. 5. Hypothyroidism. 6. Alveolar pleural fistula. PLAN AND DISCUSSION: As noted above, I am going to clamp her chest tubes today. I will take a chest x-ray at 6 o'clock this afternoon to see the progress. If her lung stays applied to the chest wall, I will continue to keep her chest tube clamped. Hopefully I will be able to remove the chest tubes in the morning.
[2016-11-01] MEDS: ESCITALOPRAM OXALATE 10 MG TAB (LEXAPRO) PO SCH (21:45)
[2016-11-01] MEDS: traZODone 100 MG TAB PO SCH (21:45)
[2016-11-02] MEDS: LEVALBUTEROL 1.25 MG/0.5 ML CONCENTRATE NEB NEB SCH ×3 (02:00→13:30)
[2016-11-02 04:45] VITALS: BP_SYST 113; BP_SYST 115; BP_DIAS 59; BP_DIAS 64
[2016-11-02] MEDS: LEVOTHYROXINE 88MCG TABLET (0.088 MG) PO SCH (05:39)
[2016-11-02] MEDS: SODIUM CHLORIDE 0.9% INJ 10 ML SYR IV SCH (05:39)
[2016-11-02] MEDS: SLF 3 ML SYR IV SCH (05:40)
[2016-11-02 06:05] LABS: MEAN CORPUSCULAR HEMOGLOBIN 33.9 pg (27.0-33.0); MEAN CORPUSCULAR HGB CONC 33.3 g/dl (32.0-36.5); MEAN CORPUSCULAR VOLUME 101.8 fl (80.0-96.0); PLATELET COUNT, AUTOMATED 537 k/mm3 (150-450); RED CELL DISTRIBUTION WIDTH 12.2 % (11.5-14.5); WHITE BLOOD COUNT 12.6 K/mm3 (4.0-10.0)
[2016-11-02 06:45] LABS: ANION GAP 6 MEQ/L (8-16); BLOOD UREA NITROGEN 8 MG/DL (7-18); CALCIUM LEVEL 8.3 MG/DL (8.8-10.2); CARBON DIOXIDE LEVEL 31 MEQ/L (21-32); CHLORIDE LEVEL 100 MEQ/L (98-107); CREATININE FOR GFR 0.62 MG/DL (0.55-1.02); GLOMERULAR FILTRATION RATE > 60.0 (>45); GLUCOSE, FASTING 95 MG/DL (80-110); POTASSIUM SERUM 4.3 MEQ/L (3.5-5.1); SODIUM LEVEL 137 MEQ/L (136-145)
[2016-11-02 06:52] LABS: EOSINOPHILS 5 % (0-5)
--- NOTE | 2016-11-02 07:53 | REP ---
CHEST X-RAY: Two views. HISTORY: Status post left lower lobectomy. Comparison study is from 07:58 a.m. on the same date. FINDINGS: Two left chest tubes remain in place unchanged. Left subclavian catheter is again seen. EKG electrodes are noted. Some loculated pleural air is seen in the left base and another bubble of loculated pleural air seen in the left apex unchanged. No new findings seen. Signed by Darron Valdivia MD 11/02/2016 08:29 A
[2016-11-02 08:00] VITALS: BP 99/58
[2016-11-02] MEDS: ADVAIR DISKUS 250/50 INH PWD INH SCH (08:07)
[2016-11-02] MEDS: MOM 30ML SUSPENSION UDC PO SCH (09:00)
[2016-11-02] MEDS: PANTOPRAZOLE 40MG TAB (PROTONIX) PO SCH (09:02)
[2016-11-02] MEDS: HEPARIN SOD (PORCINE) 5000 UNITS/ML VIAL SC SCH (09:02)
[2016-11-02] MEDS: DOCUSATE SODIUM 100 MG CAP PO SCH (09:03)
[2016-11-02] MEDS: VITAMIN D 1,000 INTERNATIONAL UNITS TABLET PO SCH (09:03)
--- NOTE | 2016-11-02 10:59 | REP ---
Status post left lower lobectomy. COMPARISON: Yesterday. Left-sided thoracotomy tube is status quo. The cardiomediastinal silhouette is stable. The central venous catheter tip remaining in the superior vena cava. Chronic lung field changes bilaterally stable. No acute patchy parenchymal opacity or pleural effusion has developed. Left-sided subpleural air density inferiorly unchanged. IMPRESSION: No change. Signed by Neo Castañeda DO 11/02/2016 03:58 P
[2016-11-02 12:00] VITALS: BP 111/56
[2016-11-02] MEDS ORDERED: PERCOCET PO (13:43)
--- NOTE | 2016-11-02 14:31 | DSES ---
DATE OF ADMISSION: 10/21/2016 DATE OF DISCHARGE: DISCHARGE DIAGNOSES: 1. Stage IA adenocarcinoma. 2. Chronic obstructive pulmonary disease (COPD). 3. Anxiety. 4. Hypothyroidism. 5. Alveolar pleural fistula. 6. Postoperative day #12, status post left lower lobectomy. HOSPITAL COURSE: The patient is a 61-year-old white female who was to undergo eye surgery, where a chest x-ray was taken, and which showed a left lung mass. Further workup, including a CT scan and a positron emission tomography (PET) scan, which showed hypermetabolic uptake. She then underwent a biopsy, which came back malignant. She has a past medical history of COPD and hypothyroidism and had preoperative PFTs showing FEV of 1.31 which was 56% of predicted with a diffusion capacity of 58% predicted. She underwent maximum oxygen (O2) exercise testing, which she passed well. She was, therefore, taken to the operating room, where she underwent a left lower lobectomy. Except for a prolonged air leak, she had a benign postoperative course. She underwent two blood patch pleurodeses with final cessation of the leak. Her chest tubes were clamped one day prior to discharge with no change in her chest x-ray. She is being discharged today on her home medications, which include albuterol/ventolin one puff as needed wheezing, Xanax 0.25 mg as needed anxiety, vitamin D 5000 units every day, Lexapro 20 mg every day, Synthroid 88 mg every day, Advair Diskus one puff 250/50 twice a day, Spiriva 18 mcg every day, and trazodone 100 mg nightly. She is being placed on Percocet 5/325 every 4 hours as needed pain. She will return to see me in 1 week with a chest x-ray and postoperative followup. Her discharge white count is 12.6 with hemoglobin and hematocrit of 11.3 and 34.0. Discharge electrolytes are normal with a BUN and creatinine of 8 and 0.62. Her chest x-ray shows her lung fully expanded to the chest wall except for a residual air space at the left costophrenic angle when her lung is not expanded. Her cupula has remnants of the blood patch.
--- NOTE | 2016-11-02 15:12 | REP ---
PA AND LATERAL CHEST: 11/02/2016 at 01:12 P.M. Comparison chest x-ray earlier this date and 11/01/2016. 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 Findings: An elevated left diaphragm and air-fluid level representing subpulmonic hydropneumothorax likely related to stated bronchopleural fistula. I do not see an apical pneumothorax. There is an indwelling left subclavian central catheter with tip in the SVC at the junction of the right atrium. Right lung shows minor blunting of CP angle with scar or small effusion with some fibrosis and apical pleural scarring bilaterally, left greater than right. I do not see worsening of the subpulmonic hydropneumothorax on that left side. No pneumothorax on the right. Some chronic fibrotic changes on the right perihilar and upper lung zone as well as a left. No acute compression deformity or destructive lesion. Impression: 1. Status post removal of left chest tube with no apical pneumothorax and no change in size of the subpulmonic hydropneumothorax on the left side. The indwelling catheter is unchanged and underlying COPD, fibrosis, pulmonary artery hypertension and bronchitis or reactive airway disease noted and unchanged. Indwelling left subclavian catheter as before. No new finding. Signed by James Rocha MD 11/03/2016 03:51 P
== END 2016-11-02 16:07 | disposition home or self-care (01) | DRG 163 ==
LOC: M OR 05:53 → M PCU 15:30
PROVIDERS: ADMIT Thoracic Surgery (Cardiothoracic Vascular Surgery); ATTEND Thoracic Surgery (Cardiothoracic Vascular Surgery)
PROC: 0B9B8ZZ Drainage of Left Lower Lobe Bronchus, Via Natural or Artificial Opening Endoscopic (ICD-10-PCS; 2016-10-21)
PROC: 07B70ZX Excision of Thorax Lymphatic, Open Approach, Diagnostic (ICD-10-PCS; 2016-10-21)
PROC: 0BT Respiratory System, Resection (ICD-10-PCS; principal; 2016-10-21 07:30)
PROC: 05H633Z Insertion of Infusion Device into Left Subclavian Vein, Percutaneous Approach (ICD-10-PCS; 2016-10-29)
PROC: 3E0L3GC Introduction of Other Therapeutic Substance into Pleural Cavity, Percutaneous Approach (ICD-10-PCS; 2016-10-29)
PROC: 3E0L3GC Introduction of Other Therapeutic Substance into Pleural Cavity, Percutaneous Approach (ICD-10-PCS; 2016-10-30)
DX: C34.32 Malignant neoplasm of lower lobe, left bronchus or lung (principal); J86.0 Pyothorax with fistula; J95.812 Postprocedural air leak; E03.9 Hypothyroidism, unspecified; F41.9 Anxiety disorder, unspecified; J45.909 Unspecified asthma, uncomplicated; E55.9 Vitamin D deficiency, unspecified; G43.909 Migraine, unspecified, not intractable, without status migrainosus; M81.0 Age-related osteoporosis without current pathological fracture; F32.9 Major depressive disorder, single episode, unspecified; J43.1 Panlobular emphysema; Z87.891 Personal history of nicotine dependence; Z79.51 Long term (current) use of inhaled steroids; Z79.899 Other long term (current) drug therapy

== ENCOUNTER → 2016-11-09 | Outpatient (CLI) | payer MEDICARE ==
[~2016-11-09] MED LIST changes: +PERCOCET PO
--- NOTE | 2016-11-09 12:13 | REP ---
Clinical: Follow up. History of left lower lung cancer. Technique: PA and lateral. Comparison: 11/02/2016. Findings: Postsurgical changes involving the left hemithorax including surgical clips in the left hilum and elevation to the left hemidiaphragm remain relatively stable. The lung cabello demonstrate chronic stable changes without new, acute consolidation, opacity, or obvious mass lesion/nodule. No pleural effusion. No pneumothorax. Cardiac silhouette is normal. Skeletal structures intact. Impression: Stable postsurgical changes involving the left hemithorax. Chronic mediastinal and pleuroparenchymal changes without evidence for acute process. Signed by Ntahaniel Gustafson MD 11/09/2016 09:06 A
== END ==
LOC: M SMT 08:33
PROVIDERS: ATTEND Thoracic Surgery (Cardiothoracic Vascular Surgery)
DX: C34.32 Malignant neoplasm of lower lobe, left bronchus or lung (principal)

== ENCOUNTER → 2016-11-23 | Outpatient (CLI) | payer MEDICARE ==
[~2016-11-23] MED LIST changes: +TRAZ-136 PO; -TRAZ100T4 PO
--- NOTE | 2016-11-23 09:41 | REP ---
CHEST, TWO VIEWS: HISTORY: Carcinoma. COMPARISON: 11/09/2016. There is loss of volume in the left hemithorax. There is elevation of the left hemidiaphragm. Increased density is present in the left lower lobe consistent with scarring. Several air fluid levels are present. The right lung is clear. The heart is normal in size. The pulmonary vasculature is normal in appearance. The bony structure is intact. IMPRESSION: There are postoperative changes in the left hemithorax unchanged compared to the previous study. Signed by Vaughn Green MD 11/23/2016 09:46 A
== END ==
LOC: M SMT 08:20
PROVIDERS: ATTEND Thoracic Surgery (Cardiothoracic Vascular Surgery)
DX: C34.82 Malignant neoplasm of overlapping sites of left bronchus and lung (principal)

== ENCOUNTER → 2016-12-21 | Outpatient (CLI) | payer MEDICARE ==
--- NOTE | 2016-12-21 09:44 | REP ---
PA and lateral chest: Comparisons are 11/23/2016 and 11/09/2016. There are surgical clips in the left hilus and chronic effacement of the left costophrenic angle, unchanged from 11/23/2016. There is no pneumothorax. There is no infiltrate or effusion. There are bullous changes throughout the lung cabello bilaterally, unchanged. Cardiac size is normal. The jamil, mediastinum, and bony thorax are unremarkable. Impression: Postsurgical changes and bullous changes. No acute cardiopulmonary findings. Signed by Melo Maldonado MD 12/21/2016 09:35 A
== END ==
LOC: M SMT 08:52
PROVIDERS: ATTEND Thoracic Surgery (Cardiothoracic Vascular Surgery)
DX: C34.82 Malignant neoplasm of overlapping sites of left bronchus and lung (principal)

== ENCOUNTER → 2017-01-13 | Outpatient (REF) | payer MEDICARE | LOC: M LAB REF 13:13 | PROVIDERS: ATTEND Internal Medicine Pulmonary Disease | DX: R05 Cough (principal) ==

== ENCOUNTER → 2017-04-12 | Outpatient (CLI) | payer MEDICARE ==
--- NOTE | 2017-04-12 12:10 | REP ---
Clinical: COPD. Comparison: 10/31/2009. Findings: Clinical: Moderate COPD/emphysematous changes with biapical and scattered bilateral scarring is appreciated. Surgical clips in the left hilum suggest prior left lower lobectomy. No acute consolidation, significant nodule or mass lesion. No pleural effusion or pneumothorax. Tracheobronchial tree is patent. Mediastinum demonstrates atherosclerotic changes of the thoracic aorta without aneurysm. Heart and pericardium are relatively normal. Surrounding musculoskeletal structures are intact. Impression: Moderate COPD and emphysematous changes with scattered scarring primarily noted at the apices. No acute process appreciated. Signed by Nathaniel Gustafson MD 04/12/2017 12:02 P
== END ==
LOC: M RAD 10:50
PROVIDERS: ATTEND Internal Medicine Pulmonary Disease
DX: J44.9 Chronic obstructive pulmonary disease, unspecified (principal)

== ENCOUNTER 2018-11-07 08:31 | Day surgery (SDC) | payer MEDICARE ==
[~2018-11-07] VITALS: Ht 162.6 cm; Wt 40.4 kg
[~2018-11-07 08:31] MED LIST changes: -/ADVA50050; -/ESCI20TA; -/ESOM40CA; -/TIOT18INH; +ADVA1AER2; +CHOL50002 PO; +LEXA1TAB2; +LIDOCAINE 2% INJ 100 MG/5 ML SDV (FOR ANES.) As Ordered ONE; +NEXI1CAP3; +NS 1,000 ML IV ONE; +PROPOFOL 500 MG/50 ML VIAL As Ordered ONE; +SPIR1CAP; -TRAZ-136 PO; +TRAZ-163 PO; +VENTAER INH; +fentaNYL 100 MCG/2 ML INJECTION (J3010) As Ordered ONE
[2018-11-07] MEDS ORDERED: PHENYLephrine HCL 500 MCG/5 ML (100MCG/ML) SYRINGE (J2370) As Ordered ONE (10:02)
--- NOTE | 2018-11-07 10:07 | ROOR ---
Patient Name: Le Burdick Procedure Date: 11/07/2018 9:49 AM Date of : 1955 Age: 63 Room: [facility] Gender: Female Note Status: Finalized Procedure: Upper Endoscopy + Biopsies Indications: Heartburn, Exclusion of Cisneros's esophagus Providers: Calderon Armas MD Referring MD: Ge Osborne NP Requesting Provider: Medicines: Monitored Anesthesia Care Complications: No immediate complications. Procedure: Pre-Anesthesia Assessment: - The heart rate, respiratory rate, oxygen saturations, blood pressure, adequacy of pulmonary ventilation, and response to care were monitored throughout the procedure. The Endoscope was introduced through the mouth, and advanced to the second part of duodenum. The upper GI endoscopy was accomplished without difficulty. The patient tolerated the procedure well. Findings: The Z-line was irregular and was found 40 cm from the incisors. Multiple biopsies were obtained with cold forceps for evaluation to rule out Cisneros's Esophagus randomly at the gastroesophageal junction. A small hiatal hernia was present. The exam of the stomach was otherwise normal. Biopsies were taken with a cold forceps in the gastric antrum for Helicobacter pylori testing. The exam of the duodenum was otherwise normal. Biopsies for histology were taken with a cold forceps in the first portion of the duodenum for evaluation of celiac disease. The exam was otherwise without abnormality. Impression: - Z-line irregular, 40 cm from the incisors. - Small hiatal hernia. - The examination was otherwise normal. - Multiple biopsies were obtained at the gastroesophageal junction. - Biopsies were taken with a cold forceps for Helicobacter pylori testing. - Biopsies were taken with a cold forceps for evaluation of celiac disease. - The examination was otherwise normal. Recommendation: - Patient has a contact number available for emergencies. The signs and symptoms of potential delayed complications were discussed with the patient. Return to normal activities tomorrow. Written discharge instructions were provided to the patient. - High fiber diet. - Discharge patient to home. - Continue present medications. - Await pathology results. - Telephone GI clinic for pathology results in 1 week. - Return to referring physician. - The findings and recommendations were discussed with the patient. Calderon Armas MD Calderon Armas MD 11/07/2018 10:07:10 AM Electronically signed by Calderon Armas MD Number of Addenda: 0 Note Initiated On: 11/07/2018 9:49 AM Estimated Blood Loss: Estimated blood loss: none.
--- NOTE | 2018-11-07 10:29 | ROOR ---
Patient Name: Le Burdick Procedure Date: 11/07/2018 9:50 AM Date of : 1955 Age: 63 Room: [facility] Gender: Female Note Status: Finalized Procedure: Total Colonoscopy to Cecum Indications: High risk colon cancer surveillance: Personal history of colonic polyps, Last colonoscopy: 2014 Providers: Calderon Armas MD Referring MD: Ge Osborne NP Requesting Provider: Medicines: Monitored Anesthesia Care Complications: No immediate complications. Procedure: Pre-Anesthesia Assessment: - The heart rate, respiratory rate, oxygen saturations, blood pressure, adequacy of pulmonary ventilation, and response to care were monitored throughout the procedure. The Colonoscope was introduced through the anus and advanced to the cecum, identified by appendiceal orifice and ileocecal valve. The colonoscopy was performed without difficulty. The patient tolerated the procedure well. The quality of the bowel preparation was excellent. Findings: The perianal and digital rectal examinations were normal. Non-bleeding internal hemorrhoids were found during retroflexion. The hemorrhoids were small and Grade I (internal hemorrhoids that do not prolapse). Scattered small-mouthed diverticula were found in the recto-sigmoid colon, sigmoid colon and descending colon. The exam was otherwise without abnormality on direct and retroflexion views. Impression: - Non-bleeding internal hemorrhoids. - Diverticulosis in the recto-sigmoid colon, in the sigmoid colon and in the descending colon. - The examination was otherwise normal on direct and retroflexion views. - No specimens collected. - The exam was otherwise normal to the cecum. Recommendation: - Patient has a contact number available for emergencies. The signs and symptoms of potential delayed complications were discussed with the patient. Return to normal activities tomorrow. Written discharge instructions were provided to the patient. - High fiber diet. - Discharge patient to home. - Continue present medications. - Repeat colonoscopy in 5 years for surveillance. - Return to referring physician. - The findings and recommendations were discussed with the patient's family. Calderon Armas MD Calderon Armas MD 11/07/2018 10:28:58 AM Electronically signed by Calderon Armas MD Number of Addenda: 0 Note Initiated On: 11/07/2018 9:50 AM Estimated Blood Loss: Estimated blood loss: none.
[2018-11-07 10:50] VITALS: BP 112/70
== END 2018-11-07 11:01 | disposition home or self-care (01) ==
LOC: M OPP 08:31
PROVIDERS: ATTEND Internal Medicine Gastroenterology
DX: K64.0 First degree hemorrhoids (principal); K57.30 Diverticulosis of large intestine without perforation or abscess without bleeding; K22.8 Other specified diseases of esophagus; K44.9 Diaphragmatic hernia without obstruction or gangrene; R12 Heartburn; Z86.010 Personal history of colon polyps
CPT/HCPCS: 43239; 88305; G0105; J2370; J3010

== ENCOUNTER → 2018-11-24 | Outpatient (CLI) | payer MEDICARE ==
[~2018-11-24] MED LIST changes: -LIDOCAINE 2% INJ 100 MG/5 ML SDV (FOR ANES.) As Ordered ONE; -NS 1,000 ML IV ONE; -PROPOFOL 500 MG/50 ML VIAL As Ordered ONE; -fentaNYL 100 MCG/2 ML INJECTION (J3010) As Ordered ONE
--- NOTE | 2018-11-24 19:28 | REP ---
CT CHEST WITHOUT CONTRAST: 11/24/2018. Comparison: 05/19/2018, 11/02/2017, 04/12/2017. Clinical history: Follow-up abnormal finding of lung cabello, emphysema. Prior lung carcinoma with resection, left lower lobe. Findings: Standard noncontrast CT protocol utilized. Coronal and sagittal reconstructions. Hyperinflation again noted with emphysematous changes throughout. There is some volume loss left hemithorax as before as a post thoracotomy change. Some linear scarring at the left base and in the medial aspect of the lower lung zone. Some minor linear fibrotic changes scattered but no nodule, mass, acute infiltrate, pleural thickening or pleural based mass. No calcified pleural plaques. Mild cylindrical bronchiectatic change is again noted. Old healed rib fracture left posterolateral 6th rib. Stable sclerotic focus at the lateral superior endplate on the left 48. This is unchanged. Likely represents degenerative change. Shows liver without fatty infiltration but only seen in part. This is unchanged. Adrenal glands without nodule or mass. No definite hiatal hernia. Upper poles kidneys unchanged and intact. Impression: 1. Advanced COPD and emphysematous changes with post thoracotomy changes on the left. No new lung lesion. 2. Fatty infiltration of the liver. 3. Post thoracotomy changes as before Electronically Signed by James Rocha MD 11/24/2018 07:56 P
== END ==
LOC: M RAD 09:04
PROVIDERS: ATTEND Internal Medicine Pulmonary Disease
DX: J44.9 Chronic obstructive pulmonary disease, unspecified (principal); Z90.2 Acquired absence of lung [part of]; K76.0 Fatty (change of) liver, not elsewhere classified

== ENCOUNTER → 2019-01-31 | Outpatient (REF) | payer MEDICARE ==
[~2019-01-31] MED LIST changes: -TRAZ-163 PO; +TRAZ-257 PO
== END ==
LOC: M LAB REF 12:16
PROVIDERS: ATTEND Nurse Practitioner Adult Health
DX: R71.8 Other abnormality of red blood cells (principal)

== ENCOUNTER → 2019-04-26 | Outpatient (CLI) | payer MEDICARE ==
[~2019-04-26] MED LIST changes: +TRAZ-163 PO; -TRAZ-257 PO
--- NOTE | 2019-04-26 13:10 | REP ---
Three-view sacrum/coccyx: 04/26/2019. Indication: Sacral coccygeal pain following fall. Comparison: None. Findings: There is no evidence of acute fracture, subluxation or dislocation. Alignment is within anatomical limits. Impression: No acute fracture detected. Electronically Signed by Rolly Chapin DO 04/26/2019 01:01 P
== END ==
LOC: M WUC 09:22
PROVIDERS: ATTEND Registered Nurse
DX: M54.5 Low back pain (principal)

== ENCOUNTER → 2019-09-06 | Outpatient (REF) | payer MEDICARE ==
[~2019-09-06] MED LIST changes: -TRAZ-163 PO; +TRAZ-257 PO
== END ==
LOC: M LAB REF 09:09
PROVIDERS: ATTEND Nurse Practitioner Adult Health
DX: R07.9 Chest pain, unspecified (principal)

== ENCOUNTER → 2019-11-27 | Outpatient (CLI) | payer MEDICARE ==
--- NOTE | 2019-11-27 11:03 | REP ---
REASON: Followup. All priors reviewed, the latest 11/24/2018. Once again, the lack of intravenous contrast decreases the sensitively of the exam. The mediastinum and pulmonary jamil are stable. There are no pleural or pericardial effusions. The imaged upper abdomen and imaged osseous structure is stable. Evaluation of the lung cabello shows advanced emphysematous changes status quo and without evidence of a new abnormal nodule, mass, or opacity. IMPRESSION: Advanced and stable appearing chronic changes. Electronically Signed by Neo Castañeda DO 11/27/2019 02:26 P
== END ==
LOC: M RAD 07:00
PROVIDERS: ATTEND Internal Medicine Pulmonary Disease
DX: R91.8 Other nonspecific abnormal finding of lung field (principal)

== ENCOUNTER → 2021-01-27 | Outpatient (CLI) | payer MEDICARE ==
--- NOTE | 2021-01-27 09:28 | REP ---
INDICATION: R91.8 [facility] ABN FINDINGS LUNG FIELD. COMPARISON: 11/27/2019 as well as other prior exams. TECHNIQUE: CT chest performed without the use of intravenous contrast. Sagittal and coronal reconstruction images are performed. FINDINGS: Lungs: Moderate emphysematous and fibrotic changes again seen bilaterally, stable when compared to the prior study. No new infiltrate or nodular opacity is seen. Mild secretions are seen in the right mainstem bronchus. Mediastinum: No gross adenopathy. Jayla: No gross adenopathy. Axilla: No gross adenopathy. Pleura: No effusion. Heart: Not enlarged. Thoracic aorta: No aneurysm. Upper abdominal structures: There is a small hiatal hernia. Visualized osseous structures: There are mild degenerative changes of the spine without compression deformity. IMPRESSION: Stable chronic findings. No acute infiltrate and no new nodule or other significant abnormality identified. <Electronically signed by Melo Sandoval > 01/27/21 0924
== END ==
LOC: M RAD 07:39
PROVIDERS: ATTEND Internal Medicine Pulmonary Disease
DX: R91.8 Other nonspecific abnormal finding of lung field (principal)

== ENCOUNTER 2021-06-07 19:32 | Emergency (ER) | payer MEDICARE ==
[~2021-06-07] VITALS: Ht 157.5 cm; Wt 42.1 kg
[2021-06-07] MEDS ORDERED: ADENOSINE 6MG/2ML INJECTION (J0153) IV STA (20:07)
[2021-06-07 20:08] LABS: BASO # 0.1 10^3/uL (0.0-0.2); BASO % 0.7 % (0.0-1.0); EOS # 0.5 10^3/uL (0.0-0.5); EOS % 4.9 % (0.0-3.0); HEMATOCRIT 42.9 % (36.0-47.0); HEMOGLOBIN 15.2 g/dl (12.0-15.5); LYMPH # 1.7 10^3/uL (1.5-5.0); LYMPH % 17.8 % (24.0-44.0); MEAN CORPUSCULAR HEMOGLOBIN 35.3 pg (27.0-33.0); MEAN CORPUSCULAR HGB CONC 35.4 g/dl (32.0-36.5); MEAN CORPUSCULAR VOLUME 99.5 fl (80.0-96.0); MONO % 10.1 % (2.0-8.0); NEUTROPHILS # 6.4 10^3/uL (1.5-8.5); PLATELET COUNT, AUTOMATED 274 10^3/uL (150-450); RED BLOOD COUNT 4.31 10^6/uL (4.00-5.40); WHITE BLOOD COUNT 9.8 10^3/uL (4.0-10.0)
[2021-06-07] MEDS ORDERED: ADENOSINE 6MG/2ML INJECTION (J0153) As Ordered ONE (20:08)
[2021-06-07] MEDS ORDERED: NS 1,000 ML IV ONE (20:10)
[2021-06-07 20:30] LABS: INR 0.76
[2021-06-07 20:31] LABS: PARTIAL THROMBOPLASTIN TIME 32.5 SECONDS (25.9-37.0)
[2021-06-07 20:41] LABS: MB/CK RELATIVE INDEX 2.16 (< OR =4)
[2021-06-07 20:42] LABS: ALBUMIN 3.7 GM/DL (3.2-5.2); BILIRUBIN,DIRECT 0.1 MG/DL (0.0-0.2); BILIRUBIN,TOTAL 0.6 MG/DL (0.2-1.0)
[2021-06-07 21:35] LABS: CK-MB VALUE MASS 5.6 NG/ML (<3.6); MB/CK RELATIVE INDEX 3.26 (< OR =4)
[2021-06-07] MEDS: GASTROGRAFIN SOLUTION 30ML PO SCH ×2 (22:51→23:15)
[2021-06-07] MEDS ORDERED: ISOVUE-370 76% 100ML VIAL As Ordered ONE (23:14)
[2021-06-08] MEDS ORDERED: PROT1TAB2 PO (00:48)
[2021-06-08] MEDS ORDERED: PANTOPRAZOLE 40MG VIAL (C9113 PER 1) IV ONE (00:50)
[2021-06-08 01:00] VITALS: BP 118/73
== END 2021-06-08 01:24 | disposition home or self-care (01) ==
LOC: M ED 19:32
DX: I47.1 Supraventricular tachycardia (principal); K92.1 Melena; K59.00 Constipation, unspecified; R10.9 Unspecified abdominal pain; R06.02 Shortness of breath; J44.9 Chronic obstructive pulmonary disease, unspecified; F17.210 Nicotine dependence, cigarettes, uncomplicated; Z88.5 Allergy status to narcotic agent; Z79.899 Other long term (current) drug therapy; Z79.51 Long term (current) use of inhaled steroids
CPT/HCPCS: 71045; 74177; 80047; 80076; 82550; 82553; 83605; 83690; 84484; 85025; 85610; 85730; 86850; 86900; 86901; 87798; 93005; 93041; 96361; 96374; 96375; 99285; C9113; J0153; Q9963; Q9967

== ENCOUNTER 2021-09-18 13:51 | Emergency (ER) | payer MEDICARE ==
[~2021-09-18] VITALS: Ht 157.5 cm; Wt 44.5 kg
[~2021-09-18 13:51] MED LIST changes: +PROT1TAB2 PO
[2021-09-18] MEDS ORDERED: TRAZ-189 (14:13)
[2021-09-18] MEDS ORDERED: PRED10TA2 (14:13)
[2021-09-18] MEDS ORDERED: CEFU1TAB22 (14:13)
[2021-09-18] MEDS ORDERED: ISOS1TAB35 (14:13)
[2021-09-18] MEDS ORDERED: LEVO75TA4 (14:13)
[2021-09-18 14:45] LABS: HEMATOCRIT 41.2 % (36.0-47.0); HEMOGLOBIN 14.3 g/dl (12.0-15.5); MEAN CORPUSCULAR HEMOGLOBIN 35.4 pg (27.0-33.0); MEAN CORPUSCULAR HGB CONC 34.7 g/dl (32.0-36.5); PLATELET COUNT, AUTOMATED 241 10^3/uL (150-450); RED BLOOD COUNT 4.04 10^6/uL (4.00-5.40)
[2021-09-18 15:06] LABS: BLOOD UREA NITROGEN 7 MG/DL (7-18); CALCIUM LEVEL 9.9 MG/DL (8.8-10.2); CARBON DIOXIDE LEVEL 25 MEQ/L (21-32); CHLORIDE LEVEL 105 MEQ/L (98-107); CREATININE FOR GFR 0.49 MG/DL (0.55-1.30); GLOMERULAR FILTRATION RATE > 60.0 (>45); GLUCOSE, FASTING 113 MG/DL (70-100); MAGNESIUM LEVEL 2.1 MG/DL (1.8-2.4); POTASSIUM SERUM 4.2 MEQ/L (3.5-5.1); SODIUM LEVEL 138 MEQ/L (136-145); THYROID STIMULATING HORMONE 0.361 uIU/ML (0.358-3.740)
[2021-09-18 15:15] VITALS: BP 107/71
[2021-09-18] MEDS ORDERED: ATEN25TA PO (16:01)
== END 2021-09-18 16:20 | disposition home or self-care (01) ==
LOC: M ED 13:51 → EDBD 13:51 → M ED 16:20
DX: I47.1 Supraventricular tachycardia (principal); J44.9 Chronic obstructive pulmonary disease, unspecified; I51.7 Cardiomegaly; E03.9 Hypothyroidism, unspecified; Z85.9 Personal history of malignant neoplasm, unspecified; Z88.6 Allergy status to analgesic agent; Z79.899 Other long term (current) drug therapy; Z79.890 Hormone replacement therapy

== ENCOUNTER 2022-02-21 08:59 | Emergency (ER) | payer MEDICARE ==
[~2022-02-21] VITALS: Ht 152.4 cm; Wt 41.9 kg
[~2022-02-21 08:59] MED LIST changes: +ATEN25TA PO; +CEFU1TAB22; +ISOS1TAB35; +LEVO75TA4; +TRAZ-189
[2022-02-21] MEDS ORDERED: IPRATROPIUM 0.5MG/ALBUTEROL 2.5MG INH SOL UD 3ML (DUONEB) NEB ONE (11:15)
[2022-02-21] MEDS ORDERED: PERC5TAB12 PO (11:36)
[2022-02-21] MEDS ORDERED: PERCOCET 5MG/325MG TAB PO ONE (11:45)
[2022-02-21 12:09] VITALS: BP 146/87
== END 2022-02-21 12:12 | disposition home or self-care (01) ==
LOC: M ED 08:59
DX: S42.254A Nondisplaced fracture of greater tuberosity of right humerus, initial encounter for closed fracture (principal); S63.501A Unspecified sprain of right wrist, initial encounter; W10.8XXA Fall (on) (from) other stairs and steps, initial encounter; Y92.098 Other place in other non-institutional residence as the place of occurrence of the external cause; R06.2 Wheezing; G43.909 Migraine, unspecified, not intractable, without status migrainosus; E03.9 Hypothyroidism, unspecified; J44.9 Chronic obstructive pulmonary disease, unspecified; F17.200 Nicotine dependence, unspecified, uncomplicated; Z85.118 Personal history of other malignant neoplasm of bronchus and lung; Z88.5 Allergy status to narcotic agent; Z79.899 Other long term (current) drug therapy; Z79.51 Long term (current) use of inhaled steroids; Z79.890 Hormone replacement therapy

== ENCOUNTER → 2022-04-06 | Outpatient (CLI) | payer MEDICARE ==
[~2022-04-06] MED LIST changes: +PERC5TAB12 PO
== END ==
LOC: M SOG 11:30
PROVIDERS: ATTEND Physician Assistant
DX: S42.251A Displaced fracture of greater tuberosity of right humerus, initial encounter for closed fracture (principal); W18.30XA Fall on same level, unspecified, initial encounter; Y92.009 Unspecified place in unspecified non-institutional (private) residence as the place of occurrence of the external cause

== ENCOUNTER → 2022-07-17 | Outpatient (REF) | payer MEDICARE | LOC: M LAB REF 16:24 | PROVIDERS: ATTEND Nurse Practitioner Family | DX: F03.90 Unspecified dementia, unspecified severity, without behavioral disturbance, psychotic disturbance, mood disturbance, and anxiety (principal) ==

== ENCOUNTER → 2022-08-18 | Outpatient (REF) | payer MEDICARE ==
[2022-08-18 18:49] LABS: FOLATE 14.7 NG/ML (>5.4)
== END ==
LOC: M LAB REF 17:00
PROVIDERS: ATTEND Nurse Practitioner Family
DX: F10.180 Alcohol abuse with alcohol-induced anxiety disorder (principal); R74.01 Elevation of levels of liver transaminase levels

== ENCOUNTER → 2022-08-26 | Outpatient (CLI) | payer MEDICARE | LOC: M PLAIMG 10:24 | PROVIDERS: ATTEND Nurse Practitioner Family | DX: F03.94 Unspecified dementia, unspecified severity, with anxiety (principal) ==

== ENCOUNTER → 2023-05-21 | Outpatient (REF) | payer MEDICARE | LOC: M LAB REF 12:22 | PROVIDERS: ATTEND Nurse Practitioner Family | DX: R41.0 Disorientation, unspecified (principal) ==

== ENCOUNTER → 2023-08-27 | Outpatient (CLI) | payer MEDICARE | LOC: M RAD 11:49 | PROVIDERS: ATTEND Nurse Practitioner Family | DX: Z12.2 Encounter for screening for malignant neoplasm of respiratory organs (principal); F17.210 Nicotine dependence, cigarettes, uncomplicated ==

== ENCOUNTER → 2023-09-17 | Outpatient (CLI) | payer MEDICARE | LOC: M WHC 13:56 | PROVIDERS: ATTEND Nurse Practitioner Family | DX: Z12.31 Encounter for screening mammogram for malignant neoplasm of breast (principal); M81.0 Age-related osteoporosis without current pathological fracture ==

== ENCOUNTER → 2024-03-09 | Outpatient (REF) | payer MEDICARE ==
[2024-03-09 13:44] LABS: RSV AMPLIFICATION NEGATIVE (NEGATIVE)
== END ==
LOC: M LAB REF 12:19
PROVIDERS: ATTEND Nurse Practitioner Family
DX: R05.9 Cough, unspecified (principal)

== ENCOUNTER 2024-08-28 12:26 | Day surgery (SDC) | payer MEDICARE ==
[~2024-08-28] VITALS: Ht 152.4 cm; Wt 40.8 kg
[~2024-08-28 12:26] MED LIST changes: -ADV250INH INH; +ADVA1AER9 INH; +LEXA1TAB PO; +STIO1AER INH; +SYNT88TA2 PO; +VITA100093 PO
[2024-08-28] MEDS ORDERED: propofoL 200 MG/20 ML VIAL As Ordered ONE (13:18)
[2024-08-28] MEDS ORDERED: fentaNYL 100 MCG/2 ML INJECTION As Ordered ONE (13:18)
[2024-08-28] MEDS ORDERED: LIDOCAINE 2% 100MG/5ML SDV (FOR ANES.) As Ordered ONE (13:19)
[2024-08-28 13:57] VITALS: TEMP 97.8
[2024-08-28 14:22] VITALS: BP 133/76; O2SAT 98
== END 2024-08-28 14:29 | disposition home or self-care (01) ==
LOC: M OPP 12:26
PROVIDERS: ATTEND Internal Medicine Gastroenterology
DX: K64.0 First degree hemorrhoids (principal); Z86.0100 Personal history of colon polyps, unspecified; K57.30 Diverticulosis of large intestine without perforation or abscess without bleeding; K22.89 Other specified disease of esophagus; K44.9 Diaphragmatic hernia without obstruction or gangrene; K22.70 Barrett's esophagus without dysplasia; J44.9 Chronic obstructive pulmonary disease, unspecified; J45.909 Unspecified asthma, uncomplicated; F41.9 Anxiety disorder, unspecified; E03.9 Hypothyroidism, unspecified; F17.210 Nicotine dependence, cigarettes, uncomplicated; Z85.118 Personal history of other malignant neoplasm of bronchus and lung; Z79.899 Other long term (current) drug therapy
CPT/HCPCS: 43239; 45378; 88305; J3010

== ENCOUNTER → 2024-09-18 | Outpatient (CLI) | payer MEDICARE | LOC: M WHC 09:34 | PROVIDERS: ATTEND Nurse Practitioner Family | DX: Z12.31 Encounter for screening mammogram for malignant neoplasm of breast (principal) ==

== ENCOUNTER → 2024-09-28 | Outpatient (CLI) | payer MEDICARE | LOC: M PLAIMG 10:28 | PROVIDERS: ATTEND Internal Medicine Pulmonary Disease | DX: Z85.118 Personal history of other malignant neoplasm of bronchus and lung (principal) ==

== ENCOUNTER → 2024-12-20 | Outpatient (CLI) | payer MEDICARE | LOC: M PLAIMG 12:41 | PROVIDERS: ATTEND Internal Medicine Pulmonary Disease | DX: J43.9 Emphysema, unspecified (principal); J98.4 Other disorders of lung; R91.8 Other nonspecific abnormal finding of lung field ==

== ENCOUNTER → 2025-02-08 | Outpatient (CLI) | payer MEDICARE | LOC: M PLARAD 13:28 | PROVIDERS: ATTEND Nurse Practitioner Family | DX: G31.9 Degenerative disease of nervous system, unspecified (principal); F03.94 Unspecified dementia, unspecified severity, with anxiety; R90.82 White matter disease, unspecified ==